=== PATIENT | female | born 1940 | race Caucasian/White ===

== ENCOUNTER 2022-12-26 13:22 | Inpatient (IN) | payer MEDICARE ==
[~2022-12-26] VITALS: Ht 160 cm; Wt 58.2 kg
[2022-12-26 14:05] LABS: BASOPHILS 0.8 % (0-2); EOSINOPHILS 11.6 % (0-6); HEMATOCRIT 46.1 % (35.0-50.0); HEMOGLOBIN 15.1 g/dL (12.0-18.0); LYMPHOCYTES 15.5 % (24-44); MCH 31.4 (27-36); MCHC 32.8 g/dl (30-36); MCV 95.5 fl (81-99); MONOCYTES 12.6 % (0-12); NEUTROPHILS 59.5 % (39-80); PLATELET COUNT 194 K/uL (140-440); RBC 4.82 M/ul (4.3-5.7); RDW 14.2 (10.5-15.0)
[2022-12-26] MEDS ORDERED: LASIX40 MG PO (14:05)
[2022-12-26 14:24] LABS: ALBUMIN 2.9 g/dL (3.4-5.0); ALBUMIN/GLOBULIN RATIO 0.64 (1.1-2.4); ANION GAP 11.2 (7-21); BILIRUBIN, TOTAL 1.4 ng/dL (0.2-1.0); BUN/CREATININE RATIO 27.64 (6.0-28.6); CALCIUM 9.3 mg/dL (8.5-10.1); CREATININE, SERUM 1.23 mg/dL (0.55-1.02); MAGNESIUM 2.2 mg/dL (1.8-2.4); POTASSIUM 4.2 mmol/L (3.5-5.1); PROTEIN, TOTAL 7.4 g/dL (6.4-8.2)
[2022-12-26 14:39] LABS: INFLUENZA B NAA NEGATIVE (NEGATIVE); RESPIRATORY SYNCYTIAL VIR NAA NEGATIVE (NEGATIVE)
[2022-12-26 17:17] VITALS: BP 127/44
--- NOTE | 2022-12-26 18:15 | NUR ---
pt is currently in bed sitting up eating dinner. she is requesting that there be no life saving measures be done for her. admission is done and no other cares are needed at this time. call light is within reach
--- NOTE | 2022-12-26 19:40 | NUR ---
REPORT RECEIVED FROM DAY SHIFT RN. PT RESTING IN BED. PT'S FAMILY AT BEDSIDE. SAFETY PRECAUTIONS MAINTAINED. CALL LIGHT WITHIN REACH. WILL CONTINUE TO MONITOR.
[2022-12-26 20:30] VITALS: BP 113/63
--- NOTE | 2022-12-26 20:30 | NUR ---
PT ASSESSED. VSS. PT CONTINUES TO WEAR O2 AT 3L NC, SATING 92%. PT UP SBA TO BSC. PT'S FAMILY AT BEDSIDE. SAFETY PRECAUTIONS MAINTAINED. CALL LIGHT WITHIN REACH. WILL CONTINUE TO MONITOR.
[2022-12-27 01:59] VITALS: BP 121/68
--- NOTE | 2022-12-27 02:00 | NUR ---
PT RESTING IN BED. VSS. PT CONTINUES TO BE A SBA TO THE BSC. SAFETY PRECAUTIONS MAINTAINED. CALL LIGHT WITHIN REACH. WILL CONTINUE TO MONITOR.
[2022-12-27 05:50] LABS: BASOPHILS 0.8 % (0-2); EOSINOPHILS 17.5 % (0-6); HEMATOCRIT 44.6 % (35.0-50.0); HEMOGLOBIN 14.8 g/dL (12.0-18.0); LYMPHOCYTES 16.2 % (24-44); MCH 31.5 (27-36); MCHC 33.1 g/dl (30-36); MCV 95.1 fl (81-99); MONOCYTES 12.1 % (0-12); NEUTROPHILS 53.4 % (39-80); PLATELET COUNT 174 K/uL (140-440); RBC 4.69 M/ul (4.3-5.7)
[2022-12-27 05:54] LABS: ANION GAP 11.9 (7-21); CALCIUM 8.8 mg/dL (8.5-10.1); CREATININE, SERUM 1.25 mg/dL (0.55-1.02); POTASSIUM 3.9 mmol/L (3.5-5.1)
[2022-12-27 06:03] VITALS: BP 134/76
--- NOTE | 2022-12-27 06:09 | NUR ---
PT RESTED WELL THROUGHUT THE SHIFT. PT ON O2 AT 4L NC TO KEEP O2 AT 92%. VSS. PT UP X1 TO BSC. PUREWICK IN PLACE. GOOD OUTPUT NOTED. SAFETY PRECAUTIONS MAINTAINED. CALL LIGHT WITHIN REACH. WILL CONTINUE TO MONITOR.
--- NOTE | 2022-12-27 07:31 | NUR ---
recieved shift report from nurse. pt is currently sleeping. no other cares needed at this time. call light within reach
[2022-12-27] MEDS ORDERED: ARMOUR THYROID30 MG PO (08:10)
[2022-12-27] MEDS ORDERED: FUROSEMIDE20 MG PO (08:11)
[2022-12-27] MEDS ORDERED: LEVOTHYROXINE50 MCG PO (08:12)
[2022-12-27] MEDS ORDERED: KLOR-CON M1010 MEQ PO (08:12)
[2022-12-27 09:12] VITALS: BP 127/43
[2022-12-27] MEDS ORDERED: MAGNESIUM400 M1 PO (09:13)
[2022-12-27] MEDS ORDERED: CALCIUM500 MG PO (09:13)
[2022-12-27] MEDS ORDERED: ZINC50 MG PO (09:13)
[2022-12-27] MEDS ORDERED: VITAMIN D325 MCG PO (09:14)
--- NOTE | 2022-12-27 09:18 | NUR ---
MED REC COMPLETE
--- NOTE | 2022-12-27 09:51 | NUR ---
PT IS CURRENTLY IN ROOM SITTING UP IN CHAIR TALKING WITH GRANDSON. WHEN ASKED IF SHES IN PAIN PT STATES NO. WHEN ASKED IF THERE IS ANYTHING I CAN DO PT STATES SHE IS FINE FOR NOW. NO THER CARES NEEDED . CALL LIGHT WITHIN REACH
--- NOTE | 2022-12-27 10:32 | NUR ---
PATIENT SITTING UP IN ROOM VISITING WITH GRANDSON. STATES SHE IS STAYING WITH SON AT THIS TIME. IS FROM [place], LIVES ALONE AND HAS [address] STEPS INTO HER HOME SHE DOES NOT HAVE ISSUES NAVIGATING. STATES SHE NO LONGER DRIVES BUT A FRIEND ASSISTS WITH TRANSPORTATION. HAS WALKER, TOILET RISER, SHOWER CHAIR AT HOME. STATES SHE IS PLANNING ON STAYING WITH SON FOR A WEEK AFTER DC TO HAVE HELP THEN RETURN HOME TO CONTINUE TO TRY TO SELL HER HOUSE. DENIES WANT FOR HOME HEALTH IN SPITE OF PT RECOMMENDATION. STATES SHE DOES NOT NORMALLY USE OXYGEN. PATIENT ENCOURAGED TO RECONSIDER HOME HEALTH PT TO HELP PREVENT INJURY. INFORMED STAFF WILL SPEAK WITH HER AGAIN PRIOR TO DC FROM FACILITY.
--- NOTE | 2022-12-27 11:07 | NUR ---
pt requested ice water. states that her leg was stiff but went away. offered her a pillow to put under her leg but she refused. no other cares are needed at this time. call light within reach
--- NOTE | 2022-12-27 12:00 | NUR ---
pt and grandson requested pt get showered after lunch. pt also requested menu to order food instead of recieving planned meals. no other cares are needed at this time. call light within reach
--- NOTE | 2022-12-27 12:43 | NUR ---
pt complained of pain and recieved prn morphine. also recieved his g tube feeding. no difficulties. no other cares needed or requested at this time. call light within reach.
[2022-12-27 14:08] VITALS: BP 114/50
[2022-12-27 18:47] VITALS: BP 132/47
--- NOTE | 2022-12-27 19:27 | NUR ---
REPORT RECIEVED FROM DAY SHIFT RN. PT SITTING IN CHAIR WITH FAMLY AT BEDSIDE. SAFETY PRECAUTIONS MAINTAINED. CALL LIGNT WITHIN REACH. WILL CONTINUE TO MONITOR.
[2022-12-27 20:24] VITALS: BP 114/65
--- NOTE | 2022-12-27 20:30 | NUR ---
PT ASSESSED. VSS. PT CONTINUES TO WEAR O2 AT 2L NC. PT'S FAMILY AT BEDSIDE. PT SBA TO BATHROOM. PT AND FAMILY EXPRESSED NO COMPLAINTS OR CONCERNS. SAFETY PRECAUTIONS MAINTAINED. CALL LIGHT WITHIN REACH. WILL CONTINUE TO MONITOR.
[2022-12-28 05:41] VITALS: BP 94/53
[2022-12-28 05:51] LABS: BASOPHILS 0.7 % (0-2); EOSINOPHILS 17.9 % (0-6); HEMATOCRIT 45.5 % (35.0-50.0); HEMOGLOBIN 15.3 g/dL (12.0-18.0); LYMPHOCYTES 18.8 % (24-44); MCH 31.5 (27-36); MCHC 33.6 g/dl (30-36); MCV 93.7 fl (81-99); MONOCYTES 11.7 % (0-12); NEUTROPHILS 50.9 % (39-80); PLATELET COUNT 180 K/uL (140-440); RBC 4.86 M/ul (4.3-5.7); RDW 14.1 (10.5-15.0)
--- NOTE | 2022-12-28 05:52 | EKG ---
[facility] [address] [place], [place] [address] Signed Wide QRS rhythm Right bundle branch block Left posterior fascicular block Bifascicular block Abnormal ECG No previous ECGs available Confirmed by CLARK LAMA MD ([id number]) on 12/28/2022 5:52:17 AM Electronically Signed By: CLARK LAMA 12/28/22 0552 PATIENT NAME: JERED KNOWLES Electrocardiogram DATE OF : 38 PHYSICIAN: CLARK LAMA REPORT #: [id number] REPORT IS CONFIDENTIAL AND NOT TO BE RELEASED WITHOUT AUTHORIZATION
[2022-12-28 05:57] LABS: ANION GAP 10.7 (7-21); BUN/CREATININE RATIO 30.5 (6.0-28.6); CALCIUM 9.1 mg/dL (8.5-10.1); CREATININE, SERUM 1.18 mg/dL (0.55-1.02); POTASSIUM 3.7 mmol/L (3.5-5.1)
--- NOTE | 2022-12-28 06:06 | NUR ---
PT RESTED WELL DURING THE SHIFT. PT WEANED TO 1L NC OF O2. PT SATING WELL. VSS. PT SBA TO THE BATHROOM AND TO CHAIR. PT ASSISTED TO CHAIR THIS AM. PUREWICK CHANGED. SAFETY PRECAUTIONS MAINTAINED. CALL LIGHT WITHIN REACH. WILL CONTINUE TO MONITOR.
--- NOTE | 2022-12-28 09:15 | NUR ---
RN IN ROOM TO ADMINISTER AM MEDICATIONS. ASSESSMENT COMPLETE. PT SITTING UP IN CHAIR. FAILED TO MAINTAIN SP02 ON ROOM AIR, PLACED BACK ON 2L NC. LUNGS CLEAR. GENERALIZED EDEMA BLE, LEFT WORSE THAN RIGHT.
--- NOTE | 2022-12-28 09:20 | NUR ---
Spoke with pt. Monika in the room. She states she came to stay with her son as she was not feeling well. She lives in [place]. Her home is up for sale. Whn it sells, she will move to her sons home permanently. She denies needs. If 02 is needed on dc, she would like to use [facility]. She denies other needs at this time. She is wanting to get home and sell her house.
[2022-12-28 09:42] VITALS: BP 148/56
--- NOTE | 2022-12-28 10:30 | NUR ---
PT VISITING WITH FAMILY IN ROOM. DENIES NEEDS AT THIS TIME.
--- NOTE | 2022-12-28 11:07 | NUR ---
PT ASSISTED BACK TO BED USING FWW. CALL LIGHT IN REACH, PURWIK IN PLACE.
--- NOTE | 2022-12-28 12:16 | NUR ---
PT UP WALKING IN HALLWAY WITH PHYSICAL THERAPY.
--- NOTE | 2022-12-28 14:44 | NUR ---
PT RESTING IN BED, DEFERING ASSESSMENT AT THIS TIME TO ALLOW REST. CALL LIGHT IN REACH.
--- NOTE | 2022-12-28 16:00 | NUR ---
RN IN ROOM TO ASSESS PT - LUNGS SOUNDS MORE MOIST, REMAINS ON 2L NC TO MAINTAIN SP02. PT DENIES PAIN OR NEEDS. STATES SHE HAD "A GOOD REST".
--- NOTE | 2022-12-28 17:33 | NUR ---
PT UP TO CHAIR TO EAT DINNER PER REQUEST. STANDBY ASSIST WITH FWW.
[2022-12-28 18:26] VITALS: BP 134/44
--- NOTE | 2022-12-28 19:15 | NUR ---
BEDSIDE REPORT RECEIVED FROM ALFREDO MACHUCA, PT AWAKE AND ALERT, UP IN RECLINER VISITING WITH SON AND DAUGHTER IN LAW, PT REQUESTS ICE WATER GIVEN, NO OTHER REQUESTS AT THIS TIME.
--- NOTE | 2022-12-28 19:23 | NUR ---
1400 VITALS WERE NOT DONE BECAUSE NURSE WANTED PATIENT TO SLEEP.
[2022-12-28 21:30] VITALS: BP 115/54
--- NOTE | 2022-12-28 21:30 | NUR ---
PT BACK TO BED, RESTING, AWAKENS EASILY, VS DONE, AFEBRILE, OXYGEN SATS 92% ON 2L/NC, ASSESSMENT COMPLETED, SL FLUSHES WELL IN RIGHT AC, SITE INTACT, ANTI EMBOLIC STOCKINGS IN PLACE, PURE WICK IN PLACE AND TO WALL SX DRAINING ROBERTO URINE. PT WITHOUT COMPLAINTS OR OTHER REQUESTS, RESTING WITH SIDE RAILS UP X 3, CALL LIGHT IN REACH, BED LOW POSITION.
--- NOTE | 2022-12-28 23:30 | NUR ---
PT RESTING QUIETLY WITH EYES CLOSED, RESP EVEN AND REG, WITHOUT DISTRESS.
--- NOTE | 2022-12-29 01:30 | NUR ---
PT APPEARS TO SLEEP, OXYGEN REMAINS ON AT 2L/NC, CPOX 96%.
--- NOTE | 2022-12-29 02:49 | NUR ---
PT AWAKE, TURNED SELF TO LEFT SIDE, OXYGEN IN PLACE, DENIES COMPLAINTS AT THIS TIME.
--- NOTE | 2022-12-29 03:30 | NUR ---
PT APPEARS TO SLEEP, RESP EVEN AND REG.
[2022-12-29 05:03] LABS: BASOPHILS 0.4 % (0-2); EOSINOPHILS 16.2 % (0-6); HEMATOCRIT 44.6 % (35.0-50.0); HEMOGLOBIN 14.8 g/dL (12.0-18.0); LYMPHOCYTES 17.9 % (24-44); MCH 31.2 (27-36); MCHC 33.2 g/dl (30-36); MCV 93.7 fl (81-99); MONOCYTES 12.8 % (0-12); NEUTROPHILS 52.7 % (39-80); PLATELET COUNT 176 K/uL (140-440); RBC 4.76 M/ul (4.3-5.7); RDW 13.8 (10.5-15.0)
[2022-12-29 05:12] LABS: ANION GAP 7.4 (7-21); BUN/CREATININE RATIO 26.78 (6.0-28.6); CALCIUM 8.5 mg/dL (8.5-10.1); CREATININE, SERUM 1.12 mg/dL (0.55-1.02); MAGNESIUM 1.9 mg/dL (1.8-2.4); POTASSIUM 3.4 mmol/L (3.5-5.1)
[2022-12-29 05:15] VITALS: BP 97/74
--- NOTE | 2022-12-29 05:15 | NUR ---
PT AWAKE, VS AND ASSESSMENT COMPLETED, PT UP TO STANDING SCALE, WT 130.5 POUNDS, PT DENIES REQUESTS AT THIS TIME.
--- NOTE | 2022-12-29 05:30 | NUR ---
PURE WICK CHANGED WHILE PT STANDING AFTER STANDING WT DONE, PT TOLERATED STANDING WITHOUT DIZZINESS, BACK TO BED, PURE WICK TO SX.
--- NOTE | 2022-12-29 07:47 | NUR ---
KAYLEEN RECEIVED FROM BRIGETTE HENRIQUEZ. PT RESTING IN BED, WORKING ON PHONE. PT DENIES PAIN AND NAUSEA. OXGYEN SATURATION OF 95% ON 2L O2 BY NC. PT DENIES REQUESTS OR COMPLAINTS AT THIS TIME. CALL LIGHT WITHIN REACH. BED RAILS UP.
--- NOTE | 2022-12-29 09:45 | NUR ---
ASSESSED PERIPHERAL IV IN L AC. IV LEAKED WHEN FLUSHED. WILL DC AND ASSESS FOR NEW IV SITES WHEN PT FINISHES PHYSICAL THERAPY. CALL LIGHT WITHIN REACH. BED RAILS UP.
--- NOTE | 2022-12-29 09:53 | NUR ---
MORNING ASSESSMENT AND MEDICATION DUE. PT RESTINGIN BED, FINISHED WITH BREAKFAST. PTS DAUGHTER IN LAW AT BEDSIDE WITH MANY QUESTIONS. LONG DISCUSSION HELD REGARDING HEART FAILURE PATHOPHYSIOLOGY AND TREATEMENTS. PT AND PTS DAUGHTER VERBALIE UNDERSTANDING AND PARTICIPATE IN DISCUSSION. BOTH STATE THEY ARE GREATFUL FOR THE EXPLINATIONS. PT DENIES PAIN AND NAUSEA. PT REPORTS OCCATIONAL DIZZINESS. SLOW TRANSITIONS HELP. PT UP TO CHAIR WITH ONE PERSON ASSIST AND FWW. OXYGEN SATURATIONS DROP TO 80% WITH ACTIVITY WHILE ON 1L O2 BY NC. OXYGEN INCREASED TO 2L O2 BY NC WITH OXGYEN SATURATIONS RISING TO 90%. LUNG SOUND CLEAR IN UPPER LOBED, CRACKELS HEARD IN LOWER LOBES. EDUCATION DONE WITH PT. HEART TONES REGULAR HEART RATE 90'S AT REST AND 100-120 WITH ACTIVITY. PURE WICK REMAINS IN PLACE, CONCENTRATED URINE SEEN IN CANISTER. NO ADDITONAL NEEDS AT THIS TIME. CALL LIGHT WITHIN REACH FAMILY AT BEDSIDE.
[2022-12-29 10:36] VITALS: BP 104/61; BP 89/67
--- NOTE | 2022-12-29 10:45 | NUR ---
THIS RN TO ROOM TO CHECK ON PT. PT UP TO CHAIR, VISITING WITH HER DAUGHTER IN LAW. EXTENSIVE HEART FAILURE EDUCATION DONE WITH PT AND DAUGHTER IN LAW REGARDING HEART FAILURE. PT ATTEMPTS TO USE GREEN/YELLOW/RED ZONES, NEEDS ADDITINOAL REINFORCEMENT. PT AND DAUGHTER IN LAW STATE PT IS IN THE YELLOW ZONE TODAY. PT ASSITED WITH FILLING OUT RECORD SHEET OF HER ZONE AND DAILY WEIGHT. PT AND DAUGTHER IN LAW STATE THEIR QUESTIONS HAVE BEEN ANSWERED. NEW IV STARTED PER PROTOCOL TO LEFT FORARM PT REPORTS DISCOMFORT TO RIGHT AC SITE AND SITE IS LEAKING. PT REMAINS ON 2 LITERS O2 BY NC TO MAINTAIN OXYGEN SATURATIONS ABOVE 90%. NO ADDITIONAL REQUESTS OR COMPLAINTS. CALL LIGHT FRANCISCAInVisionMAVIS PAT.
--- NOTE | 2022-12-29 11:35 | NUR ---
THIS RN TO ROOM TO CHECK ON PT. PT REPORTS SHE HAS VOIDED BUT NO ADDITIONAL URINE SEEN IN [facility]. PT UP TO STAND. DEPEDNS CHANGED, LUIS CARE DONE. REDNESS NOTED TO GLUTEAL AREA. BARRIER CREAM APPLIED. NEW PURE WICK PLACED PER PROTOCOL. PT TOELARTES GETTING UP TO STAND WITH 1 PERSON ASSIST. NO ADDITONAL REQUESTS OR COMPLAINTS. PT DENEIS PAIN AND NAUSEA. CALL LIGHT WIHTIN REACH. FAMILY AT BEDSIDE.
--- NOTE | 2022-12-29 12:41 | NUR ---
HOURLY ROUNDING. PT IN CHAIR AWAKE AND ALERT, TALKING TO DAUGHTER ON THE PHONE. LUNCH IS ON TRAY AT CHAIRSIDE, PT STATES SHE IS WAITING TO EAT AFTER HER PHONE CALL. PT REPORTS NO PAIN. NO NEEDS STATED AT THIS TIME. CALL LIGHT WITHIN REACH.
[2022-12-29 12:59] LABS: PH, VENOUS 7.474 (7.31-7.41)
--- NOTE | 2022-12-29 13:12 | NUR ---
PULSE OX ALARMING, PT UP TO CHAIR FINISHING LUNCH. OXYGEN SATURATIONS OF 85% ON 2L O2 BY NC. GOOD WAVE FORM SEEN. I.S. USE WITH PT REACHING 500-750ML X5. NO EFFECT ON OXYGENATION. OXYGEN INCREASED TO 3l O2 BY NC AND SATURATIONS CLIMB TO 92%. PT DENIES DIZZINESS OR LIGHTHEADEDNESS. PT DENIES PAIN OR NAUSEA. WORK OF BREATHING WNL. NO ADDITIONAL REQUESTS OR COMPLAINTS. CALL LIGHT PATSY PAT.
[2022-12-29 13:34] VITALS: BP 133/47
--- NOTE | 2022-12-29 14:32 | NUR ---
AFTERNOON ASSESSMENT AND MEDICAITON DUE. PT RESTING WITH EYES CLOSED. RESPIRATIONS EVEN AND UNLABORED. PT AWAKENS TO MOVEMENT IN THE ROOM. PT ALERT AND ORIENTED TO ALL. LUNG SOUNDS IMPROVING, CRACKELS CONTINUE IN RLL, NOW MINIMAL. CLEAR LLL AT THIS TIME. WORK OF BREATHING WNL. PT REPORTS SHE IS "FEELING BETTER." PT WEANED BACK TO 2L O2 BY NC WITH OXGYEN SATUARTIONS 90% AND ABOVE. PT DEMONSTRATES US OF I.S. REACHING 750ML X5. EDEMA TO BLE IMPROVING, NOW +1 IN BLE AND +2 IN FEET AND ANKLES. PURE WICK REMAINS IN PLACE. CONCENTRATED YELLOW URINE CONTINUES. IV LASIX GIVEN. PT ASSISTED WITH BOOSTING UP IN BED. HEAD OF BED REMAINS ELEVATED TO 30 DEGREES AND PT RETURNS TO RESTING. NO ADDITIONAL REQUESTS OR COMPLAINTS. CALL LIGHT WITHIN REACH. BED RAILS UP.
--- NOTE | 2022-12-29 14:43 | NUR ---
CARDIAC ASSESSMENT. PT STATES PAIN IN FRONT OF CALVES, NO PAIN ON THE BACK, NO SIGNS OF BLOOD CLOTS ON BACK OF CALVES. +2 EDEMA IN FEET AND ANKLES, +1 IN LOWER LEGS. HEART SOUNDS IRREGULARLY IRREGULAR. PT HAS A HX OF AFIB. HR 89, O2 SAT 93% PER CPOX. CARDIAC MEDICATIONS GIVEN PER ORDER.
--- NOTE | 2022-12-29 15:07 | NUR ---
HOURLY ROUNDING. PT LAYING IN BED WITH EYES CLOSED, RR 16, HR 87, O2 SAT 93%. PT ON 2L O2 VIA NC. CALL LIGHT WITHIN REACH. BED RAILS UP.
--- NOTE | 2022-12-29 16:11 | NUR ---
HOURLY ROUNDING. PT LAYING IN BED WITH EYES CLOSED, RR 16, HR 87, O2 SAT 92% PER CPOX. CALL LIGHT WITHIN REACH, BED RAILS UP.
--- NOTE | 2022-12-29 16:47 | NUR ---
PT HERE FOR CHF EXCECERBATION. PT UP WITH 1 PERSON ASSIST AND FWW TO CHAIR AND TO AMBUALTE IN ROOM THIS SHIFT. PHYSICAL THERAPY INVOLVED. PT TOLERATING 2 GM SODIUM DIET WITH GOOD APPITITE. DAILY WEIGHT TAKEN. PO AND IV LASIX GIVEN WITH GOOD RESULTS. PURE WICK IN PLACE. BLE EDEMA IMPROVING. LUNG SOUNDS CIMPROVING. PT REMAINS ON CPOX. 1-3L O2 BY NC GIVEN, 3 WITH ACTIVITY. RAJANI HOSE IN PLACE. EXTENSIVE EDUCATION DONE WITH PT AND FAMILY REGARDING HEART FAILURE. ECHOCARDIOGRAM EXPECTED ON SATURDAY. MONITORING LABS. PT ALERT AND OREINTED TO ALL THIS SHIFT. PT DENIES PAIN THROUGHOUT SHIFT. PT TOLEARTING PO MEDICATIONS. PT DOES NOT USE CALL LIGHT. INTENTIONAL HOURLY ROUNDING PERFORMED.
[2022-12-29 17:56] VITALS: BP 124/59
--- NOTE | 2022-12-29 18:06 | NUR ---
HOURLY ROUNDING. PT AWAKE AND ALERT IN BED. PT REPORTS NO PAIN, NO SOB. O2 VIA NC AT 2L, O2 SAT HIGH 80S. PT COMPLAINS OF DISCOMFORT WITH NC ON EARS AND BACK OF THE HEAD, SWITCHED TO OXY MASK AT 2L NC FOR RESTING IN BED. DISCUSSED WITH PT THAT USING NC DURING DAYTIME ACTIVITIES CAN ALLOW FOR GREATER MOBILITY. O2 SAT 91% ON OXY MASK, HR IN THE LOW 90S PER CPOX. PT REPORTS NO FURTHER NEEDS AT THIS TIME, CALL LIGHT WITHIN REACH, BED RAILS UP.
--- NOTE | 2022-12-29 19:15 | NUR ---
BEDSIDE REPORT RECEIVED BY SHAMEKA MACHUCA, PT RESTING QUIETLY WITH EYES CLOSED.
--- NOTE | 2022-12-29 19:19 | NUR ---
AFTER PATIENT WAS DONE WITH HER LUNCH AND GOT HER VITALS DONE. PATIENT WANTED TO LAY DOWN AND TAKE A NAP.
[2022-12-29 21:25] VITALS: BP 97/54
--- NOTE | 2022-12-29 21:25 | NUR ---
PT RESTING ON LEFT SIDE, OXYGEN MASK IN PLACE, PT AWAKENS EASILY, VS AND ASSESSMENT DONE, PT DENIES PAIN OR NEEDS AT THIS TIME, LEFT FA SL FLUSHES WELL, SITE INTACT.
--- NOTE | 2022-12-29 22:25 | NUR ---
PT APPEARS TO SLEEP, RESP EVEN AND REG. WITHOUT DISTRESS.
--- NOTE | 2022-12-30 00:30 | NUR ---
PT APPEARS TO SLEEP, RESP EVN AND REG, OXYGEN PER MASK REMAINS IN PLACE.
--- NOTE | 2022-12-30 01:50 | NUR ---
RM TO PT'S ROOM DUE TO CPOX ALARM, OXYGEN SATS 81-84%, OXYGEN FOUND TO BE OFF OF PT, PT AWAKEN AND OXYGEN REPLACE, PT C/O BEING WELL, LARGE INCONTINANCE, CHUK, ATTENDS AND PURE WICK CHANGED AFTER LUIS AND BUTTOCK AREA CLEANSED, PT REQUESTING HOB TO BE ELEVATED, FRESH WATER GIVEN AND PT DRINKING SOME, PT ATTEMPTING TO REST WITHOUT FURTHER REQUESTS.
--- NOTE | 2022-12-30 04:00 | NUR ---
CPOX ALARMING, READING 86-88%, FACE MASK ADJUSTED, SATS RISING BACK TO THE 90'S. PT WITHOUT REQUEST, FRESH WATER GIVEN.
[2022-12-30 04:55] VITALS: BP 106/55
--- NOTE | 2022-12-30 04:55 | NUR ---
LAB IN FOR AM BLOOD DRAW, VS AND ASSESSMENT COMPLETED, PT UP FOR STANDING WT, PT DESIRES TO SIT IN CHAIR, ATTENDS CHANGED WHILE STANDING FOR LARGE MISSED VOID, TRANSFERED TO CHAIR 1PA WITH WALKER, OXYGEN IN PLACE, CALL LIGHT IN REACH.
[2022-12-30 05:16] LABS: BASOPHILS 0.3 % (0-2); EOSINOPHILS 15.5 % (0-6); HEMATOCRIT 46.2 % (35.0-50.0); LYMPHOCYTES 21.8 % (24-44); MCH 30.8 (27-36); MCHC 32.5 g/dl (30-36); MCV 94.7 fl (81-99); MONOCYTES 14.3 % (0-12); NEUTROPHILS 48.1 % (39-80); PLATELET COUNT 193 K/uL (140-440); RBC 4.87 M/ul (4.3-5.7); RDW 14.1 (10.5-15.0)
[2022-12-30 05:24] LABS: ANION GAP 9.8 (7-21); BUN/CREATININE RATIO 35.08 (6.0-28.6); CALCIUM 9.2 mg/dL (8.5-10.1); CREATININE, SERUM 1.14 mg/dL (0.55-1.02); POTASSIUM 3.8 mmol/L (3.5-5.1)
--- NOTE | 2022-12-30 06:35 | NUR ---
PT AWAKE, DESIRES TO GET BACK IN BED, RN ASSISTED PT BACK TO BED, PT RESTING WITHOUT COMPLAINTS, OXYGEN IN PLACE.
--- NOTE | 2022-12-30 07:20 | NUR ---
REPORT RECEIVED FROM BRIGETTE HENRIQUEZ. PT RESTING IN BED, SEMIFOWLER, WITH HEAD OF BED AT 30 DEGREES WITH EYES CLOSED, RESPIRATIONS EVEN AND UNLABORED. OXYGEN SATURATIONS 95% ON 2L O2 BY N OXYMASK. PT ALLOWED TO REST. CALL LIGHT WIHTIN REACH. BED RAILS UP. BED ALARM ON.
[2022-12-30 08:35] VITALS: BP 121/58
--- NOTE | 2022-12-30 08:40 | NUR ---
MORNING ASSESSMENT AND MEDICAITON DUE. PT RESTING WITH EYES CLOSED. PT AWAKENES TO VOICE AND MOVEMENT IN THE ROOM. PT REPORT SHE SLEPT ON AND OFF LAST NIGHT. PT TOELRATING 2L O2 BY OXY MASK. ROOM AIR TRIAL ATTEMPTED AND PT DROPS TO 84%. PT REMAINS ALERT AND OREINTED TO ALL ALTHOUGH OCCATIONALLY FORGETFUL. PT DENIES PAIN AND NAUSEA. PT UP TO CHAIR WITH STAND BY ASSIST AND FWW. PT REPORTS SHE IS AFRAID HER "KNEES ARE GOING TO BUCKLE." PHYSICAL THERAPY INVOLVED. LUNG SOUNDS CLEAR IN UPPER LOBES, CRACKELS HEARD IN BASES. PT CONTINUES TO NEED 2L O2 BY NC WITH OXGYEN SATURATIONS 88-91%. PT DEMONSRATES USE OF I.S. ONLY REACHING 500ML X5 TODAY. OCCATIONAL DRY COUGH HEARD. PURE WICK CHANGED PER PROTOCOL. HEART TONES REGULAR ALTHOUGH NOTED THAT PTS RATE WAS IN THE 50'S WITH REST AND NOW IN 100-120'S. PT DENIES CHEST PAIN OR PALPITATIONS. NO ADDITIONAL REQUESTS OR COMPLAINTS. CALL LIGHT WIHTIN REACH. PT REMAINS UP TO CHAIR. EATING BREAFKAST.
--- NOTE | 2022-12-30 08:50 | NUR ---
CARDIAC AND VASCULAR ASSESSMENTS COMPLETED. CPOX ON, HR 119, O2 SAT 89% ON 2L VIA NC. HEART TONES REGULAR, TACHYCARDIC WITH HR IN 110-120. BLOOD PRESSURE IS STABLE, PT DENIES PAIN IN CHEST, PT REPORTS "MAYBE A LITTLE" DIZZINES. PULSES STRONG IN RADIAL, FAINT IN THE PEDAL PUSES, EDEMA DECREASING. EDEMA IS NOW TRACE IN BLE AND +1 IN BILAT FEET. CAP REFILL BRISK IN ALL EXTREMETIES <3 SEC.
--- NOTE | 2022-12-30 09:22 | NUR ---
PT REMAIN UP TO CHAIR. FINISHED WITH BREAKFAST. HEART RATE NOW 80-100. PT CONTINEUS TOERATING 2L 2O BY ID WITH OXYGEN SATUARTIONS 90-92%. PT DENIES PAIN AND NAUSEA. NO ADDITIONAL REQUESTS OR COMPLAINTS. CALL LIGHT WITHIN REACH.
--- NOTE | 2022-12-30 10:50 | NUR ---
HOURLY ROUNDING. PT UP TO CHAIR LAYING BACK WITH EYES CLOSED, RR 16 EVEN AND UNLABORED, CPOX ON DISPLAYING HR 98, O2 SAT 94% ON 2L NC. WEANED TO 1L NC, PT MAINTAINING 93% O2 SAT PER CPOX. PHYSICAL THERAPY WAS IN BEFORE THIS NOTE AND STATED THAT PT DID WELL AND TOLERATED ACTIVITY WITH 3L O2 VIA NC. NO NEEDS NOTED AT THIS TIME. CALL LIGHT WITHIN REACH.
--- NOTE | 2022-12-30 11:42 | NUR ---
HOURLY ROUNDING. PT UP TO CHAIR LAYING BACK WITH EYES CLOSED, RR 16, HR 89, O2 SAT 92% ON 1L NC. PHYSICAL THERAPY REMOVED PUREWICK, PUREWICK REPLACED. CALL LIGHT WITHIN REACH.
--- NOTE | 2022-12-30 12:27 | NUR ---
HOURLY ROUNDING. PT UP TO CHAIR, HAD EYES CLOSED WHEN WE CAME IN, BUT WOKE UP FOR LUNCH. PT REPOSITIONED TO SIT UP HIGHER IN CHAIR. PT EATING LUNCH, SON AND DAUGHTER IN LAW IN TO VISIT. HR 107, O2 SAT 87% VIA NC PER CPOX. NO FURTHER REQUESTS AT THIS TIME. CALL LIGHT WITHIN REACH.
--- NOTE | 2022-12-30 13:15 | NUR ---
THIS RN TO ROOM WITH DR GALAVIZ FOR ROUNDS. PT AND FAMILY UPDATED ON PT STATUS AND PLAN OF CARE. PT AND FAMILY VERBALIZE UNDERSTANDING AND STATE THEIR QUESTIONS HAVE BEEN ANSWERED. DR GALAVIZ UPDATED ON PT STATUS AND ASSESMENT, NEW ORDERS PLACED. ADDITIONAL EDUCATION DONE WITH PT REGARING RED/YELLOW/GREEN ZONES OF HEART FAILURE AND DAILY WEIGHTS. PT ABLE TO DEMONSTRATE UNDERSTANDING TODAY STATING SHE IS IN THE YELLOW ZONE BECAUSE SHE IS STILL HAVING SWELLING AND WEIGHT GAIN. PT ASSISTED WITH RECORDING WEIGHT AND ZONE. ICE WATER REFILLED. PURE WICK EMPTIED. NO ADDITIONAL REQUESTS OR COMPLAINTS AT THIS TIME. CALL LIGHT WITHIN REACH. FAMILY AT BEDSIDE.
--- NOTE | 2022-12-30 14:19 | NUR ---
PT ASSISTED BACK TO BED FOR A NAP. PT STATES SHE HAS NOT HAD A BM SINCE SHE HAS BEEN HERE BUT DOES NOT WANT TO TAKE ANYTHING.
[2022-12-30 14:35] VITALS: BP 131/64
--- NOTE | 2022-12-30 14:38 | NUR ---
AFTERNOON ASSESSMENT AND MEDICATION DUE. PT RESTING IN BED. PT ASSISTED WITH BOOSTING UP IN BED, PT ABLE TO BOOST SELF WITH ANGLE OF BED LOWERED. HEAD OF BED NOW AT 31 DEGREES. PT ALERT AND OREINTED TO ALL. DENIES PAIN AND NAUSEA. PT REMAIN OCCATIONALLY FORGETFUL AND REPORTS SHE IS TIRED AND READY FOR HER NAP. HEART TONES REGULAR HEART RATE 90-110. PT CONTINUES TO TOLEARTE 2L O2 BY NC WITH OXGYEN SATURATIONS ABOVE 90%. LUNG SOUNDS CLEAR. ADDITONAL MEDICATION GIVEN (SEE MAR). ABDOMEN SOFT AND NON TEDNER. PT DENIES FEELINGS OF CONSTIPATION. CMS INTACT. EDEMA UNCHANGED. PURE WICK REMAINS IN PLACE WITH CONCENTRATED YELLOW URINE IN CANISTER. PT DENIES ADDITONAL REQUESTS OR COMPLAINTS. CALL LIGHT WITHIN REACH. BED RAILS UP.
--- NOTE | 2022-12-30 14:50 | NUR ---
VASCULAR ASSESSMENT: PT LYING IN BED, AWAKE AND ALERT. EDEMA STILL PRESENT IN BLE. PEDAL PULSES CONTINUE TO BE FAINT. RADIAL PULSES STRONG. CAP REFILL BRISK <3 SECONDS IN ALL EXTREMETIES. SENSATION PRESENT IN ALL EXTREMETIES. CARDIOVASCULAR ASSESSMENT: PT CONTINUES TO BE ON CPOX, HR 107, O2 SAT 91% PER CPOX. HEART TONES REGULAR, TACHYCARDIC. EDEMA PRESENT IN BLE. PT'S FAMILY NOT AT BEDSIDE, PT REPORTS SHE IS GOING TO TAKE A NAP, PT REPORTS NO PAIN, NO FURTHER NEEDS STATED. CALL LIGHT WITHIN REACH.
--- NOTE | 2022-12-30 15:24 | NUR ---
HOURLY ROUNDING. PT LAYING IN BED WITH EYES CLOSED, RR 16, HR 100, O2 SAT 95%. CALL LIGHT WITHIN REACH.
--- NOTE | 2022-12-30 16:34 | NUR ---
HOURLY ROUNDING. PT LAYING IN BED WITH EYES CLOSED, RR 13, HR 55 PER CPOX, O2 SAT 97% PER CPOX. WEANED DOWN TO 1L O2 VIA NC FROM 2L. O2 96% AFTER WEANING. PT HR DECREASES TO THE 50S WHEN SLEEPING AND O2 SAT INCREASES TO THE MID-HIGH 90S WHEN SLEEPING THIS SHIFT. CALL LIGHT WITHIN REACH, BED RAILS UP.
--- NOTE | 2022-12-30 16:40 | NUR ---
PT HERE FOR CHF EXCECERBATION. PT UP WITH 1 PERSON ASSIST AND FWW TO CHAIR AND TO AMBUALTE IN ROOM THIS SHIFT. PHYSICAL THERAPY INVOLVED. PT TOLERATING 2 GM SODIUM DIET WITH GOOD APPITITE. DAILY WEIGHT TAKEN. PO LASIX GIVEN WITH GOOD RESULTS. PURE WICK IN PLACE. BLE EDEMA IMPROVING. LUNG SOUNDS IMPROVING. PT REMAINS ON CPOX. 1-3L O2 BY NC GIVEN, 3 WITH ACTIVITY. RAJANI HOSE IN PLACE. EXTENSIVE EDUCATION DONE WITH PT AND FAMILY REGARDING HEART FAILURE. ECHOCARDIOGRAM EXPECTED ON SATURDAY. MONITORING LABS. PT ALERT AND OREINTED TO ALL THIS SHIFT. PT DENIES PAIN THROUGHOUT SHIFT. PT TOLEARTING PO MEDICATIONS. CASE MANAGEMENT ODER PLACED TO ASSIST WITH DISHCHARGE PLANNING. PT DOES NOT USE CALL LIGHT. INTENTIONAL HOURLY ROUNDING PERFORMED.
--- NOTE | 2022-12-30 16:43 | NUR ---
NOTED FROM DR TEAGUE PROGRESS NOTE THAT PT MAY NEED PLACMENT AND/OR PHYSCIAL THERAPY UPON DISCHARGE. CASE MANAGEMENT CONSULTATION ORDER PLACED.
[2022-12-30 17:32] VITALS: BP 99/49
--- NOTE | 2022-12-30 17:34 | NUR ---
HOURLY ROUNDING. PT SITTING UP IN BED, HAD JUST FINISHED EATING DINNER. PT STATES SHE HAS A "STUFFY" NOSE AND THAT HER NOSE IS "FEELING DRY". REMOVED NC, PT CLEARED NOSE, NOW FEELS LIKE IT IS CLEAR. ADDED HUMIDIFICATION TO O2 FOR DRYNESS. PT TOLERATING WELL AND O2 IS AT 91% ON 2L PER CPOX. PUREWICK IN PLACE. PT STATES NO FURTHER NEEDS AT THIS TIME. PT ASSISTED TO LAY DOWN IN BED. PT STATES NO FURTHER NEEDS AT THIS TIME. CALL LIGHT WITHIN REACH. BED RAILS UP.
--- NOTE | 2022-12-30 18:16 | NUR ---
PT LYING IN BED AWAKE AND ALERT. BED ALARM ON. HR 62, O2 SAT 93 PER CPOX. PT CONTINUES TO BE ON 2L O2 VIA NC WITH HUMIDIFICATION. PT COMPLAINS OF NC HURTING HER EARS, EAR PROTECTORS PLACED ON NC, PT STATES THEY "FEEL BETTER". PT STATES NO FURTHER NEEDS AT THIS TIME. CALL LIGHT WITHIN REACH, BED ALARM ON, BED RAILS UP.
--- NOTE | 2022-12-30 19:05 | NUR ---
BEDSIDE REPORT RECEIVED FROM SHAMEKA MACHUCA, PT AWAKE AND ALERT, DENIES COMPLAINTS AT THIS TIME.
[2022-12-30 21:05] VITALS: BP 139/47
--- NOTE | 2022-12-30 21:05 | NUR ---
PT AWAKE AND ALERT, VS DONE PER SHAMEKA RN, VS REVIEWED AND NOTED. FAMILY HERE FOR A VISIT.
--- NOTE | 2022-12-30 22:40 | NUR ---
PT RESTING ON LEFT SIDE, EASILY AROUSABLE, ASSESSMENT COMPLETED, LEFT FA SL FLUSHES WELL, OXYGEN NOTED TO BE ON 2.5L/NC, CPOX IN PLACE OXYGEN 93%, HR 61. PT WITHOUT COMPLAINTS OR REQUESTS AT THIS TIME, PURE WICK IN PLACE.
--- NOTE | 2022-12-30 23:58 | NUR ---
PT RESTING QUIETLY ON RIGHT SIDE, CPOX 93%, RESP REGULAR
--- NOTE | 2022-12-31 01:50 | NUR ---
PT ASLEEP, LAYING ON LEFT SIDE, SATS 97-98%
--- NOTE | 2022-12-31 04:12 | NUR ---
PT APPEARS TO SLEEP, RESP EVEN AND REG, CPOX 95%.
[2022-12-31 05:11] VITALS: BP 105/53
--- NOTE | 2022-12-31 05:11 | NUR ---
LAB IN FOR AM BLOOD DRAW, VS DONE, PT UP TO BE WEIGH ON STANDING SCALE, PERICARE DONE AND NEW PURE WICK PLACED. PT DESIRES TO SIT ON SIDE OF BED, HAIR COMBED AND ORAL CARE GIVEN, BED ALARM ON AND BEDSIDE TABLE PLACED IN FRONT OF PATIENT. OXYGEN IN PLACE.
[2022-12-31 05:13] LABS: BASOPHILS 0.7 % (0-2); EOSINOPHILS 18.5 % (0-6); HEMATOCRIT 43.8 % (35.0-50.0); HEMOGLOBIN 14.4 g/dL (12.0-18.0); LYMPHOCYTES 23.6 % (24-44); MCV 93.9 fl (81-99); MONOCYTES 14.5 % (0-12); NEUTROPHILS 42.7 % (39-80); PLATELET COUNT 171 K/uL (140-440); RBC 4.66 M/ul (4.3-5.7)
[2022-12-31 05:24] LABS: ANION GAP 7.8 (7-21); BUN/CREATININE RATIO 33.05 (6.0-28.6); CALCIUM 9.1 mg/dL (8.5-10.1); CREATININE, SERUM 1.18 mg/dL (0.55-1.02); MAGNESIUM 2.1 mg/dL (1.8-2.4); POTASSIUM 3.8 mmol/L (3.5-5.1)
--- NOTE | 2022-12-31 06:46 | NUR ---
PT BACK TO BED, WITHOUT COMPLAINTS, BREATH SOUNDS CLEAR, RESP EVEN AND REG, OXYGEN IN PLACE, RAJANI HOSE REMAIN ON.
--- NOTE | 2022-12-31 07:44 | NUR ---
REPORT RECEIVED FROM BRIGETTE HENRIQUEZ. PT IN BED RESTING WITH EYES CLOSED.
--- NOTE | 2022-12-31 08:40 | NUR ---
PT WAS RESTING BUT I WOKE HER TO GIVE HER HER MORNING MEDS AND GET HER UP IN HER CHAIR TO EAT BREAKFAST. I NOTICED THAT HER 02 WAS AT 85 THOUGH SHE WAS ON 2L. I TURNED IT UP TO 3L AND HER 02 STATS WENT UP TO 88. SHE REQUESTED FOR A ROBE AND IT WAS GIVEN. NO OTHER CARES ARE NEEDED OR REQUESTED AT THIS TIME. CALL LIGHT WITHIN REACH
--- NOTE | 2022-12-31 08:50 | NUR ---
Spoke with Lanette. She denies needs. Plans on staying through tomorrow for an Echo. We did discuss the could be a chance medicare won't pay for her to stay in house for an Echo. I did discuss with Dr. Kruse, he does state he cont. to diures this pt and she needs to stay tonight. PT had recommending SNF, pt is declining this.
[2022-12-31 09:38] VITALS: BP 140/56
--- NOTE | 2022-12-31 09:40 | NUR ---
PATIENT SITTING UP IN CHAIR AT THIS TIME. VITALS AND I&O'S CHARTED. CALL LIGHT IN REACH. NO FURTHER NEEDS AT THIS TIME.
--- NOTE | 2022-12-31 12:45 | NUR ---
Face sheet, 02 qualifier, Rx, H&P and notes faxed to [facility] for 02. Face sheet updated with son's correct address for pt 02 to be delivered to his home. I called Yifan and he gave the correct address as Lanette did not know. He states family will pick her up tomorrow and stay with her in his home.
[2022-12-31 13:55] VITALS: BP 92/46
--- NOTE | 2022-12-31 16:19 | NUR ---
PT IS CURRENTLY SITTING UP IN HER CHAIR. PHYSICAL THERAPY IS WITH HER NOW. NO OOTHER CARES WERE NEEDED OR REQUESTED AT THE TIME
--- NOTE | 2022-12-31 16:28 | NUR ---
ASSISTED PT WITH SHOWER. HAD A BM PRIOR TO SHOWERING. WAS ABLE TO WASH OWN HAIR AND RINSE. ASSISTED WITH DRESSING AND AMB BACK TO CHAIR.
--- NOTE | 2022-12-31 16:37 | NUR ---
ASSITED PT TO SHOWER. HAD A BOWEL MOVEMENT PRIOR TO SHOWERING. PT ABLE TO WASH OWN HAIR AND HELP WITH DRESSING. PT AMB BACK TO CHAIR WITH FWW.
[2022-12-31 18:26] VITALS: BP 146/50
--- NOTE | 2022-12-31 19:05 | NUR ---
REPORT RECEIVED FROM BERNA. pt UP IN CHAIR VISITING WITH FAMILY. DENIES ANY NEEDS. CALL LIGHT IN REACH.
[2022-12-31 19:50] VITALS: BP 141/57
--- NOTE | 2022-12-31 20:31 | NUR ---
pt AWAKE SITTING UP IN CHAIR. ASSESSMENT COMPLETE. 2.5L OXYGEN BY NC IN PLACE, SPO2 WNL. LUNG SOUNDS COARSE LLL. pt DENIES SOB. ASSISTED TO CALL DAUGHTER ON CELL PHONE. CALL LIGHT IN REACH. pt DENIES TOILETING OR ADDITIONAL NEEDS, DOES NOT WISH TO GO TO BED AT THIS TIME.
--- NOTE | 2023-01-01 00:59 | NUR ---
CHECKED ON pt. RESTING IN BED ON LEFT SIDE. SPO2 WNL, CPOX ON. NO DISTRESS NOTED.
--- NOTE | 2023-01-01 04:00 | NUR ---
CPOX ALARMING, OXYGEN ON FOREHEAD. REAPPLIED, TITRATED TO 4L OXYGEN BY NC TO MAINTAIN SATURATIONS >92% PER ORDER. pt COVERED WITH BLANKETS PER REQUEST. PUREWICK IN PLACE AND FUNCTIONING.
[2023-01-01 06:43] VITALS: BP 147/48
--- NOTE | 2023-01-01 06:59 | NUR ---
pt SLEEPING, AWAKENS TO VOICE. VSS. STANDING WEIGHT 58.2 KG. OXYGEN TITRATED TO 4L WITH ACTIVITY, SPO2 90% WHILE OUT OF BED. LINENS CHANGED, INCONTINENCE OF URINE. NEW PUREWICK PLACED. ICE WATER PROVIDED, pt SITS UP TO TAKE DRINKS. REQUESTING TO REST. CALL LIGHT IN REACH.
--- NOTE | 2023-01-01 07:21 | NUR ---
Report received from Bonita MCAHUCA. Patient resting in bed, respirations even and unlabored, no needs identified at this time. Call light in reach.
--- NOTE | 2023-01-01 08:28 | NUR ---
PATIENT IS HAVE ECHO DONE AT THIS TIME.
--- NOTE | 2023-01-01 09:08 | NUR ---
PATIENT INCREASED FROM 3L TO 4L DURING BREAKFAST TO KEEP SATS >88%. RT CLARK NOTIFIED AND INDICATED THAT SHE IS QUALIFIED FOR 4L WITH ACTIVITY. PRIMARY NURSE NOTIFIED.
--- NOTE | 2023-01-01 09:15 | NUR ---
Scheduled medications administered, assessment complete. Patient sitting up to bedside eating breakfast, states all finished, tray cleared. Patient on 3L O2, lung sounds diminished with rare crackles heard. Patient denies needs, denies SOB, no pain. Minimal edema to BLE.
[2023-01-01] MEDS ORDERED: FUROSEMIDE40 MG PO (09:54)
--- NOTE | 2023-01-01 10:00 | NUR ---
Pt was discussed in 8:30 meeting. She will dc to home when 02 delivered. CAlled Grazyna to check when 02 will be delivered. NOtified their is a multiple car [place]up on the freeway. Their tractor driver is rerouting through [place]. This will ad approx 2 hrs. He will text when he is closer so family can take pt home.
[2023-01-01 10:11] VITALS: BP 127/62
[2023-01-01 10:43] VITALS: BP 142/52
--- NOTE | 2023-01-01 11:05 | NUR ---
IV REMOVED, TIP INTACT, GAUZE AND COBAN DRESSING APPLIED TO SITE. PT TOLERATED WELL. PUREWICK REMOVED AND NEW BREIF DONNED. PT ASSISTED TO DRESS IN PERSONAL CLOTHES FOR DISCHARGE. PT ASSISTED TO RECLINER WITH 1 PERSON STANDBY ASSIST AND FWW, PT TOLERATED WELL. O2 IN PLACE VIA NC AT 4LPM. VS OBTAINED, STABLE. PRIMARY RN NOTIFIED, BRIGETTE HCÁVEZ.
--- NOTE | 2023-01-01 12:04 | NUR ---
Discharge teaching provided to patient and her family member. Patient states understanding. Elzbieta MACHUCA in room discussing home health PT/OT, pt is agreeable. Home o2 company associate arrives to discuss plan with patient and her family. Pt is dressed and all belonings gathered. Education and paperwork given. No further needs. Call light in reach.
--- NOTE | 2023-01-01 12:30 | NUR ---
Notified by Toan he is in [place] and will be at the hospital around 1pm. He is bringing a tank for the pt to dc to home with. Pts GABY is here with pt. She is wanting to know if we can help them change a pcp to [place]. I gave them a list of Dr. Let them know to not dc their Dr. until they have been accepted and schedule with a Dr. in [place]. Let them know, it can take 4-6 months to schedule with a pcp. GABY would like pt to have HH PT/OT/[facility]. We discussed pt had refused this. GABY feels this is needed as pt is deconditioned and requires 4l of [address] Goode and he is in agreement. Pt now agreeing. They would like [facility].
--- NOTE | 2023-01-01 16:00 | NUR ---
Face sheet, H&P, dc summary, F2F, therapy notes faxed to [facility]. I called Tasha their manager ccu, they are approx 2 weeks out to see pts. DIL was updated.
== END 2023-01-01 12:36 | disposition home or self-care (01) | DRG 291 ==
LOC: ED 13:22 → MS 13:25
PROVIDERS: Emergency Medicine; ADMIT Family Medicine; ATTEND Family Medicine
DX: I50.9 Heart failure, unspecified (principal); J96.01 Acute respiratory failure with hypoxia; E03.9 Hypothyroidism, unspecified; I25.10 Atherosclerotic heart disease of native coronary artery without angina pectoris; Z20.822 Contact with and (suspected) exposure to COVID-19; N18.32 Chronic kidney disease, stage 3b; I25.2 Old myocardial infarction; Z95.1 Presence of aortocoronary bypass graft; Z88.0 Allergy status to penicillin; Z98.890 Other specified postprocedural states; Z79.01 Long term (current) use of anticoagulants
CPT/HCPCS: 36415; 71045; 80048; 80053; 82803; 83735; 83880; 84443; 84484; 85025; 87502; 93005; 93010; 93306; 94640; 94761; 94762; 96374; 96376; 97110; 97116; 97161; 97530; 99285-25; A9270; C9803; G0378; J1940; U0002

== ENCOUNTER 2024-01-07 00:52 | Inpatient (IN) | payer MEDICARE ==
[2024-01-07] VITALS (13 sets, daily range): BP systolic 110–163; BP diastolic 40–70
[~2024-01-07] VITALS: Ht 160 cm; Wt 61.5 kg
[~2024-01-07 00:52] MED LIST: ARMOUR THYROID30 MG PO; CALCIUM500 MG PO; FUROSEMIDE20 MG PO; FUROSEMIDE40 MG PO; KLOR-CON M1010 MEQ PO; LASIX40 MG PO; LEVOTHYROXINE50 MCG PO; MAGNESIUM400 M1 PO; VITAMIN D325 MCG PO; ZINC50 MG PO
[2024-01-07 01:11] LABS: PH, VENOUS 7.391 (7.31-7.41)
[2024-01-07 01:13] LABS: BASOPHILS 1.3 % (0-2); EOSINOPHILS 1.8 % (0-6); HEMATOCRIT 43.6 % (35.0-50.0); HEMOGLOBIN 14.6 g/dL (12.0-18.0); LYMPHOCYTES 35.6 % (24-44); MCHC 33.5 g/dl (30-36); MCV 95.4 fl (81-99); MONOCYTES 11.8 % (0-12); NEUTROPHILS 49.5 % (39-80); PLATELET COUNT 134 K/uL (140-440); RBC 4.57 M/ul (4.3-5.7); RDW 15.1 (10.5-15.0)
[2024-01-07] MEDS ORDERED: FUROSEMIDE 100 MG/10 ML VIAL IV ONE (01:15)
[2024-01-07] MEDS ORDERED: LIDOCAINE 2% VISCOUS 6 ML SYR TOP ONE (01:30)
[2024-01-07 01:37] LABS: BILIRUBIN, TOTAL 1.6 ng/dL (0.2-1.0); BUN/CREATININE RATIO 17.85 (6.0-28.6); CALCIUM 9.6 mg/dL (8.5-10.1); CREATININE, SERUM 1.96 mg/dL (0.55-1.02)
[2024-01-07] MEDS ORDERED: ondansetron HCL 4 MG/2 ML VIAL IV PRN (03:00)
[2024-01-07] MEDS ORDERED: ACETAMINOPHEN 325 MG TAB PO PRN ×2 (03:00→16:00)
--- NOTE | 2024-01-07 03:50 | NUR ---
PT TO FLOOR APPROX 0315 VIA STRETCHER WITH ED RN. SLIDE ASSIST TO TRANSFER TO BED. BEDSIDE REPORT RECEIVED. PT ALERT AND ORIENTED. VS OBTAINED. TELE #6 PLACED. PT DENIES CHEST PAIN OR SOB. OXYGEN 97% ON 2L/NC. O2 TITRATED TO 1L/NC. CPOX IN PLACE. SpO2 MID 90'S. HR IRREGULAR 60-80'S. LUNGS CLEAR THROUGHOUT. BLE EDEMA NOTED. WARM BLANKETS PROVIDED. PT ORIENTED TO ROOM AND NURSE CALL LIGHT. PT DENIES QUESTIONS OR CONCERNS. CALL LIGHT IN REACH. BED ALARM FOR SAFETY.
[2024-01-07 05:54] LABS: BASOPHILS 0.6 % (0-2); EOSINOPHILS 2.2 % (0-6); HEMATOCRIT 41.2 % (35.0-50.0); LYMPHOCYTES 36.1 % (24-44); MCH 31.8 (27-36); MCHC 33.9 g/dl (30-36); MONOCYTES 13.2 % (0-12); NEUTROPHILS 47.9 % (39-80); PLATELET COUNT 120 K/uL (140-440); RBC 4.38 M/ul (4.3-5.7); RDW 14.9 (10.5-15.0)
--- NOTE | 2024-01-07 06:03 | NUR ---
PT AWAKE IN BED. VS AND I&O OBTAINED. DAILY WEIGHT OBTAINED. PT REPORTS A "TINY BIT" OF SOB WITH ACTIVITY. 1L/NC IN PLACE. SpO2 MID TO HIGH 90'S. PUREWICK CHANGED AFTER LUIS CARE. WARM BLANKETS PROVIDED. BED ALARM FOR SAFETY. CALL LIGHT IN REACH.
[2024-01-07 06:17] LABS: ALBUMIN 3.7 g/dL (3.4-5.0); ANION GAP 10.3 (7-21); BILIRUBIN, TOTAL 1.5 ng/dL (0.2-1.0); BUN/CREATININE RATIO 18.99 (6.0-28.6); CALCIUM 9.1 mg/dL (8.5-10.1); CREATININE, SERUM 1.79 mg/dL (0.55-1.02); POTASSIUM 3.3 mmol/L (3.5-5.1); PROTEIN, TOTAL 7.4 g/dL (6.4-8.2)
--- NOTE | 2024-01-07 07:44 | NUR ---
PT RESTING EYES CLOSED AT TIME OF SHIFT REPORT, LEFT UNDISTURBED. AWAKE NOW AND UP TO THE CHAIR SBA WITH FWW. SATS DIP TO 89 WITH ACTIVITY RECOVERS QUICKLY AT 94% ON 1 L02 NC. FRESH H20 AND NEEDED ITEMS IN REACH CALL LIGHT IN LAP PT AGREES TO CALL FOR ANY NEEDED ASSIST. CHAIR IS RECLINED VISUAL TO RN STATION. 02 DC'D SATS REMAIN MID 90'S
[2024-01-07] MEDS ORDERED: POTASSIUM CHLORIDE 10 MEQ TABCR PO ONE ×2 (08:00→12:00)
--- NOTE | 2024-01-07 08:00 | NUR ---
PT SATS DIP TO 80'S 02 REPLACED AT 1LPM RECOVERS QUICKLY
--- NOTE | 2024-01-07 08:03 | NUR ---
PATIENT IN BED AT THIS TIME. QUALITY ASSURANCE ASSOCIATE WENT INTO ROOM FOR PATIENT ROUNDINGS. CALL LIGHT WITHIN REACH, NO FURTHER NEEDS AT THIS TIME.
[2024-01-07] MEDS ORDERED: FUROSEMIDE 40 MG/4 ML VIAL IV SCH (09:00)
--- NOTE | 2024-01-07 09:15 | NUR ---
PT SITTING IN CHAIR WITH MORNING MEAL AGREES SHE HAS EVERYTHING SHE NEEDS
--- NOTE | 2024-01-07 09:46 | NUR ---
ULTRA SOUND TECH IN WITH PT AT THIS TIME
--- NOTE | 2024-01-07 10:10 | NUR ---
LASIX WAS HELD PER DR SMALLS DUE TO LOW BP EARLIER IN SHIFT. RECHECKING BP NOW IT REMAINS LOW MED NOT GIVEN. PT CONTINUES IN BED FOR U/S TESTING CALL LIGHT IN REACH
--- NOTE | 2024-01-07 10:17 | NUR ---
ULTRASOUND BEING COMPLETED AT THIS TIME. WILL RETURN TO COMPLETE ASSESSMENT AT A LATER TIME.
--- NOTE | 2024-01-07 10:56 | NUR ---
VISITED DURING SPIRITUAL CARE ROUNDS. PT IN OVERALL GOOD SPIRITS, DENIED IMMEDIATE NEEDS. STORE COORDINATOR PROVIDED SUPPORTIVE PRESENCE, HOSPITALITY, PRAYER. PT EXPRESSED GRATITUDE.
--- NOTE | 2024-01-07 11:15 | NUR ---
CHF EDUCATION COMPLETED PRINTED MATERIALS AT BEDSIDE. PT IS COOPERATIVE AGREES TO READ MATERIALS AT SOME POINT. PT DENIES QUESTIONS.
--- NOTE | 2024-01-07 11:48 | NUR ---
PT WORKING WITH P/T
[2024-01-07] MEDS ORDERED: PHARMACY RENAL DOSE ADJUSTMENT 1 DOSE MISC PO SCH (12:00)
--- NOTE | 2024-01-07 12:22 | NUR ---
PATIENT IN BED AT THIS TIME. FREIGHT CHECKER WENT INTO PATIENTS ROOM FOR PATIENT ROUNDINGS. CALL LIGHT WITHIN REACH, NO FURTHER AT THIS TIME.
--- NOTE | 2024-01-07 12:26 | NUR ---
PT UP TO THE CHAIR AFTER WORKING WITH P/T. NOON MEAL IS SERVED PT AGREES SHE WILL EAT, TOILET, AND THEN LAY DOWN FOR SOME BADLY NEEDED REST. CALL LIGHT IN LAP DENIES OTHER NEEDS
--- NOTE | 2024-01-07 13:00 | NUR ---
PATIENT ALERT AND ORIENTED. SITTING UP IN RECLINER. STATES SHE IS MOVING IN WITH HER SON AT DISCHARGE UNTIL SHE IS ABLE TO GET INTO A FACILITY TO LIVE. CURRENTLY HAS AN APPLICATION FOR [employer] BUT IS 24TH ON THE WAITING LIST. DISCUSSED [facility] OPTIONS. STATES SHE IS OK WITH GOING TO HER SON'S UNTIL A PLACE OPENS UP. STATES HE HAS STAIRS TO THE DECK OF HIS HOUSE, BUT FAMILY ASSISTS HER WHEN NEEDED. DME INCLUDES WALKER, CANE, OXYGEN THROUGH [facility]. DOES NOT DRIVE, FAMILY ASSISTS WITH TRANSPORTATION. HAS NO PCP. ADDED TO DISCHARGE SCHEDULING LIST AND CLINICALS FAXED TO [facility] TO ASSIST WITH GETTING PATIENT A PCP. DENIES ANY FINANCIAL HARDSHIP AT THE MOMENT. STATES SHE CAN NOT CURRENTLY THINK OF ANY CM NEEDS. WILL RETURN TO SPEAK WITH PATIENT AND FOLLOW-UP TOMORROW.
--- NOTE | 2024-01-07 14:48 | NUR ---
PT TO THE TOILET AND THEN TO REST IN BED. SOB WITH ACTIVITY RECOVERS QUICKLY. REMAINS ON 02 1LPM.
[2024-01-07] MEDS ORDERED: POTASSIUM GLUCO99 MG PO (15:07)
[2024-01-07] MEDS ORDERED: CALCIUM500 MG PO (15:07)
--- NOTE | 2024-01-07 15:07 | NUR ---
MED REC COMPLETE
[2024-01-07] MEDS ORDERED: CYCLOBENZAPRINE HCL 10 MG TAB PO PRN (16:00)
--- NOTE | 2024-01-07 16:00 | NUR ---
PATIENT IN CHAIR AT THIS TIME. COOKER LOADER WENT INTO PATIENTS ROOM TO DO PATIENT ROUNDS. CALL LIGHT WITHIN REACH, NO FURTHER NEEDS AT THIS TIME.
--- NOTE | 2024-01-07 16:43 | NUR ---
CHECKED IN WITH PT EARLIER SHE REPORTS CONTINUED LEG CRAMPING. REPORTED TO DR SMALLS ORDERS GIVEN. ADMINISTERED FLEXARIL. CHECKING BACK NOW PT REPORTS SHE THINKS IT'S HELPING, SHE HAS NO CRAMPING AT THIS TIME. CONTINUES UP IN THE CHAIR FRESH H20 TO CHAIRSIDE CALL LIGHT IN LAP. PT AGREES TO CALL IF SHE NEEDS TO GET UP
[2024-01-07] MEDS ORDERED: FUROSEMIDE 40 MG/4 ML VIAL IV ONE (16:45)
--- NOTE | 2024-01-07 17:03 | NUR ---
VITALS TAKEN PRIOR TO ADMINISTRATION OS LASIC BP LOW AGAIN. REPORTED BP AND BRADYCARDIA TO DR SLIM SNIDER CANCELED PER HIS ORDER. NOT GIVEN
--- NOTE | 2024-01-07 17:53 | NUR ---
PT TO THE TOILET TO VOID THEN RETURNS TO THE CHAIR FOR EVENING MEAL. CONTINUES WITHOUT LEG CRAMPS.
--- NOTE | 2024-01-07 18:14 | NUR ---
PATIENT IN CHAIR AT THIS TIME. RN OBGYN WENT INTO PATIENT ROOM TO DO PATIENT ROUNDINDS. RN OBGYN CHARTED VITALS AND I&O'S. CALL LIGHT WITHIN REACH, NO FURTHER NEEDS AT THIS TIME.
--- NOTE | 2024-01-07 18:41 | NUR ---
PT EATS ENTIRE EVENING MEAL WELL TOLERATED. RETURNS TO REST IN BED PURWIK PLACED FOR PT COMFORT.
--- NOTE | 2024-01-07 18:50 | NUR ---
PT WANTED TO GO BACK TO BED. PUT A PUREWICK ON @1840 AND DID LUIS CARE ON PT. GOT HER A WARM BLANKET AND PUT SDC'S BACK ON. CALL LIGHT IS WITHIN REACH AND PT DIDNT NEED ANYTHING ELSE FROM ME.
--- NOTE | 2024-01-07 19:23 | NUR ---
REPORT RECEIVED FROM DAY SHIFT RN. PT LYING IN BED ALERT AND ORIENTED. DENIES NEEDS. WHITE BOARD UPDATED. CALL LIGHT IN REACH. BED ALARM FOR SAFETY.
[2024-01-07] MEDS ORDERED: TIZANIDINE HCL 4 MG TABLET PO PRN (21:45)
--- NOTE | 2024-01-07 21:47 | NUR ---
EVENING ASSESSMENT COMPLETE. PT REPORTS LEG CRAMPS AND RESTLESS LEGS. NO PRN'S AVAILABLE. MD NOTIFIED. NEW TELEPHONE ORDERS RECEIVED VERIFIED WITH READBACK METHOD. PT DENIES SOB OR CHEST PAIN. 1L/NC IN PLACE. SpO2 LOW 90'S. LUNGS CLEAR THROUGHOUT. TELE #[address] HR 40-50'S. BLE EDEMA NOTED. SCD'S IN PLACE. PT INCONTINENT OF URINE. NEW PUREWICK PLACED AFTER LUIS CARE. PT DENIES QUESTIONS OR CONCERNS. CALL LIGHT IN REACH. BED ALARM FOR SAFETY.
--- NOTE | 2024-01-07 23:15 | NUR ---
PT CONTINUES TO REPORTS LEG CRAMPS AND RESTLESS LEGS. FELT COVERER ASSIST TO STAND AT THE SIDE OF THE BED AND MARCH IN PLACE. ASSISTED TO RECLINER. PT THEN REPORTS PAIN IN BILAT FEET. PRN FOR PAIN ADMIN PER EMAR. PT REQUESTS TO SIT UP IN RECLINER WITH FEET DOWN FOR A WHILE. HR 35-40'S ON TELE. PT DENIES FEELING LIGHT HEADED OR DIZZY. SpO2 HIGH 90'S ON 1L/NC. NO FURTHER NEEDS. PT IN VIEW OF NURSES STATION. CALL LIGHT IN REACH.
[2024-01-08] VITALS (21 sets, daily range): BP systolic 88–184; BP diastolic 32–136
[2024-01-08] MEDS ORDERED: ATROPINE SULFATE 1 MG/10 ML SYR IV ONE ×2 (00:15)
--- NOTE | 2024-01-08 00:20 | NUR ---
APPROX 2330 PT DOZING ON AND OFF IN RECLINER. STATES "I'M SO SLEEPY" 1PA TO BED. HR IN THE 40'S WITH ACTIVITY. THIS RN LEFT THE ROOM AFTER SETTING BED ALARM. NOTED HR LOW 30'S ON TELE. IN TO ASSESS BP. BP LOW, PT LESS RESPONSIVE. MD NOTIFIED. NEW TELEPHONE ORDERS RECEIVED VERIFIED WITH READBACK METHOD. AT APPROX 0010 IN TO ADMINISTER ATROPINE. HR MINIMALLY RESPONSIVE TO 40'S. PT RESPONDS TO PAINFUL STIMULI. MD ON FLOOR. VERBAL ORDERS RECEIVED FOR ADDITIONAL DOSE OF ATROPINE AND TO TRANSFER PT TO CCU. PT TRANSPORTED TO CCU ROOM 128 AT APPROX 0020 WITH ALL PERSONAL BELONGINGS. REPORT GIVEN TO CCU RN.
--- NOTE | 2024-01-08 00:28 | NUR ---
PT ARRIVES TO ROOM 128 VIA BED WITH MS RN AND GUEST SERVICE MANAGER, PRESENT. PT RESPONDING TO PAINFUL STIMULI ONLY, HR 30'S ON HEART MONITOR. NOREPI DRIP STARTED - SEE FLOWSHEET FOR TITRATION. ADDITIONAL IV ACCESS OBTAINED BY OTHER RN - LABS COLLECTED. EKG OBTAINED AND READ BY MD. 1 LITER BOLUS STARTED PER VERBAL ORDER.
[2024-01-08] MEDS ORDERED: ATROPINE SULFATE 1 MG/10 ML SYR IV PRN (00:30)
[2024-01-08] MEDS ORDERED: NOREPINEPHRINE BITARTRATE 250 ML IV SCH (00:30)
[2024-01-08 00:44] LABS: EOSINOPHILS 2.9 % (0-6); HEMATOCRIT 36.2 % (35.0-50.0); HEMOGLOBIN 12.3 g/dL (12.0-18.0); LYMPHOCYTES 43.9 % (24-44); MCH 31.9 (27-36); MCHC 34.1 g/dl (30-36); MCV 93.5 fl (81-99); MONOCYTES 13.6 % (0-12); NEUTROPHILS 38.6 % (39-80); PLATELET COUNT 107 K/uL (140-440); RBC 3.87 M/ul (4.3-5.7); RDW 15.2 (10.5-15.0)
[2024-01-08] MEDS ORDERED: LACTATED RINGER'S 1,000 ML IV ONE (00:45)
[2024-01-08] MEDS ORDERED: Dobutamine HCl/D5w 250 ML IV ONE (00:54)
[2024-01-08 00:57] LABS: ANION GAP 10.2 (7-21); BUN/CREATININE RATIO 23.46 (6.0-28.6); CALCIUM 8.9 mg/dL (8.5-10.1); CREATININE, SERUM 1.79 mg/dL (0.55-1.02); MAGNESIUM 2.2 mg/dL (1.8-2.4); PHOSPHORUS, INORGANIC 4.1 mg/dL (2.5-4.9); POTASSIUM 5.2 mmol/L (3.5-5.1)
[2024-01-08] MEDS ORDERED: Dobutamine HCl/D5w 250 ML IV SCH ×2 (01:00→01:15)
--- NOTE | 2024-01-08 01:00 | NUR ---
HR RESPONDING MINIMALLY TO NOREPI DRIP, VERBAL ORDER RECEIVED TO SWITCH TO DOBUTAMINE. SEE FLOWSHEET FOR TITRATION. PT BECOMES ALERT AND VERBALIZING WITH THIS RN AND MD THAT SHE DOES NOT WANT ANY INTERVENTIONS AND WISHES TO "GO HOME TO GOD". MD NOTIFING FAMILY.
--- NOTE | 2024-01-08 01:40 | NUR ---
FAMILY AT BEDSIDE - MEDICATION AND CARE QUESTIONS ANSWERED. PT REMAINS ALERT IN COHERENT WITH CONVERSATION. PT REFUSES PACEMAKER INTERVENTION, DNR/DNI.
--- NOTE | 2024-01-08 02:44 | NUR ---
MD IN ROOM DISCUSSING PLAN OF CARE WITH FAMILY. ALL QUESTIONS ANSWERED. PT CONTINUES TO EXPRESS DESIRE TO WITHDRAW CARE AND PASS QUICKLY, PT STATES "I WANT TO GET THIS OVER". FAMILY REQUESTS A MOMENT TO CALL FAMILY. DOBUTAMINE DRIP REMAINS ON AT THIS TIME, HR 50'S.
[2024-01-08] MEDS ORDERED: MORPHINE SULFATE 4 MG/ML VIAL IV PRN (03:00)
[2024-01-08] MEDS ORDERED: ondansetron HCL 4 MG/2 ML VIAL IV PRN (03:00)
[2024-01-08] MEDS ORDERED: ATROPINE SULFATE 1% OPTH DROPS SL PRN (03:00)
[2024-01-08] MEDS ORDERED: LORazepam 2 MG/ML VIAL IV PRN (03:00)
[2024-01-08] MEDS ORDERED: ARTIFICIAL TEARS 15 ML BTL OU PRN (03:00)
--- NOTE | 2024-01-08 03:35 | NUR ---
RN IN ROOM TO REPOSISTION PT. 2MG MORPHINE ADMINISTERED BY OTHER RN FOR LEG PAIN. PT STATES SHE IS "OK WITH TURNING IT OFF" WHEN ASKED IF SHE WOULD LIKE CARDIAC MEDICATION TO BE STOPPED. PT NOW SALINE LOCKED. FAMILY IN ROOM AND PROVIDED CHAIRS AND REFRESHMENTS NEEDED.
--- NOTE | 2024-01-08 04:43 | NUR ---
PT NOTED TO HAVE HR 130 ON MONITOR, SUSTAINED TACHYCARDIA. PT RESTING IN BED APPEARS COMFORTABLE AND WITHOUT DISTRESS. FAMILY AT SIDE. DENIES NEEDS AT THIS TIME.
[2024-01-08 05:52] LABS: EOSINOPHILS 2.5 % (0-6); HEMATOCRIT 34.6 % (35.0-50.0); HEMOGLOBIN 11.7 g/dL (12.0-18.0); LYMPHOCYTES 27.8 % (24-44); MCH 32.2 (27-36); MCHC 33.9 g/dl (30-36); MONOCYTES 12.2 % (0-12); NEUTROPHILS 56.5 % (39-80); PLATELET COUNT 104 K/uL (140-440); RBC 3.64 M/ul (4.3-5.7); RDW 14.7 (10.5-15.0)
[2024-01-08 06:04] LABS: ANION GAP 11.5 (7-21); BUN/CREATININE RATIO 21.96 (6.0-28.6); CALCIUM 8.7 mg/dL (8.5-10.1); CREATININE, SERUM 1.73 mg/dL (0.55-1.02); POTASSIUM 4.5 mmol/L (3.5-5.1)
--- NOTE | 2024-01-08 06:11 | NUR ---
pt reposistioned and attends changed. Clean purewik placed. pt did not awake with movement. no signs of pain at this time. pt placed on 1l 02 via nc to maintain sp02 >90%. Family at bedside, denies needs at this time.
--- NOTE | 2024-01-08 07:15 | NUR ---
Report received from night order selector RN. Patient resting in bed with eyes closed, even and unlabored respirations, no needs identified at this time, family at bedside, agreeable to plan of care.
--- NOTE | 2024-01-08 07:33 | NUR ---
UR CLINICAL REVIEW: 2 MN FOR VERSALUS-MEETS INPT CRITERIA MEDICARE INPT 01/07/24 @ 0821 ORDER MATCHES REG NO AUTH REQUIRED PER MEDICARE GUIDELINES. DISCHARGE PENDING FURTHER EVALUATION AND FAMILY CONFERENCE.
--- NOTE | 2024-01-08 08:28 | NUR ---
Rounded on patient who is resting in bed with no needs identified at this time, family denies needs as well. Call light in reach.
[2024-01-08] MEDS ORDERED: ENOXAPARIN SODIUM 40 MG/0.4 ML SYR SUB-Q SCH (09:00)
[2024-01-08] MEDS ORDERED: SCOPOLAMINE 1 MG/3 DAYS PATCH 1 EACH TDSY TD SCH (09:00)
--- NOTE | 2024-01-08 09:44 | NUR ---
Rounded in room with hospitalist, patient resting in bed with eyes closed, even and unlabored respirations, VSS. Family at bedside, needs continued education regarding patient status and discharge disposition. Patient has no needs at this time. Call light in reach.
--- NOTE | 2024-01-08 10:29 | NUR ---
Scopalamine patch applied per order, patient family refused injection of lovenox, patient is unresponsive at this time, even and unlabored respirations noted, no needs identified at this time, pt appears comfortable. Family at bedside.
--- NOTE | 2024-01-08 11:30 | NUR ---
Spoke with Tyler and Jessica. Pt remains asleep and not responding to voice. Spoke with family and attempted to discuss a plan for moving forward. FAmily feel pt is sleeping from a dose of Morphine and will awaken. They state they have had a very busy schedule the last few days. Lanette decided to move back with them and they pick her up from [place] and moved her to [place]. Lanette then came to the hospital. We discussed Palliative care and end of life care. Family are concerned on Hospice pt would be resusitated and we discussed this would be comfort care. Pt would not return to the hospital, nurses are available and OC. FAmily then state they had hospice for the grandfather and he lived with them. If pt does not awaken they would be willing to take her home on hospice and provide care. If pt does awaken, they would consider Palliative care through HH at . Pt could return to the hospital and further treatment. A nurse would visit to monitor, educate, pt could have PT/OT if needed. Jessica asks I call pts daughter Heydi.
--- NOTE | 2024-01-08 13:30 | NUR ---
Patient awake, somewhat confused to surroundings, states needing to void. Reminded of purewick in place, patient agreeable to using, quickly forgets and requests assistance to void. Family at bedside encouraging patient care and reorienting patient. Repositioned in bed using draw sheet, patient very weak and demonstrating limited mobility. Pt takes a few bites of fruit from lunch tray, sips of water. No further needs at this time.
--- NOTE | 2024-01-08 14:00 | NUR ---
Called and left Heydi a message requesting a return call.
--- NOTE | 2024-01-08 14:12 | NUR ---
VISITED DURING SPIRITUAL CARE ROUNDS. PT IN PHONE CONVERSATION, VISITED WITH COMPANIONS AT BEDSIDE, BOTH OF WHOM DENIED IMMEDIATE NEEDS. STATISTICAL MACHINE SERVICER PROVIDED SUPPORTIVE PRESENCE, HOSPITALITY, PRAYER, FACILITATED INTERACTION WITH VISITING THERAPY ANIMAL.
--- NOTE | 2024-01-08 14:58 | NUR ---
Called and spoke with Samantha Case. Pt is awakening somewhat.
--- NOTE | 2024-01-08 15:27 | NUR ---
Patient resting in bed, on RA. VSS- more hypertensive now, with pressures 142/51, HR remains in 60s. Family at bedside. CM updated on patient status.
--- NOTE | 2024-01-08 15:50 | EKG ---
[facility] [address] [facility] [place] [address] Signed Junctional bradycardia Right bundle branch block T wave abnormality, consider inferior ischemia Abnormal ECG When compared with ECG of 26-DEC-2022 13:44, No significant change was found Confirmed by Maxi Kelly MD ([id number]) on 01/08/2024 3:49:47 PM Electronically Signed By: MAXI KELLY MD 01/08/24 1550 PATIENT NAME: CARMEN KNOWLESA YOLANDA Electrocardiogram DATE OF : 38 PHYSICIAN: MAXI KELLY MD REPORT #: [id number] REPORT IS CONFIDENTIAL AND NOT TO BE RELEASED WITHOUT AUTHORIZATION
--- NOTE | 2024-01-08 16:16 | EKG ---
[facility] [address] [facility] [place], [place] [address] Signed Junctional bradycardia Right bundle branch block Abnormal ECG When compared with ECG of 07-JAN-2024 01:05, (Unconfirmed) No significant change was found Confirmed by Maxi Kelly MD ([id number]) on 01/08/2024 4:15:51 PM Electronically Signed By: MAXI KELLY MD 01/08/24 1616 PATIENT NAME: CARMEN KNOWLESA YOLANDA Electrocardiogram DATE OF : 38 PHYSICIAN: MAXI KELLY MD REPORT #: [id number] REPORT IS CONFIDENTIAL AND NOT TO BE RELEASED WITHOUT AUTHORIZATION
--- NOTE | 2024-01-08 16:36 | NUR ---
BEDSIDE REPORT RECEIVED FROM BRIGETTE CHÁVEZ AT 1430. PT AND PT BELONGNINGS ESCORTED TO MED-SURG ROOM 110 VIA BED. VISITOR X1 IN ROOM. PT IS AWAKE AND ALERT, FOLLOWS COMMANDS. PT ORIENTED TO ROOM. CALL LIGHT IN REACH.
--- NOTE | 2024-01-08 17:15 | NUR ---
O2 89% UPON ARRIVAL TO UNIT, 1L O2 VIA NC APPLIED, PT O2 SATS UP TO 97%. DENIES SOB OR CHEST PAIN AT THIS TIME. DENIES PAIN. RESTS IN BED ON CELL PHONE. CALL LIGHT IN REACH. NO REQUESTS AT THIS TIME.
--- NOTE | 2024-01-08 18:30 | NUR ---
PT SITS UP ON BEDSIDE ON CELL PHONE, DINNER IN ROOM. CALL LIGHT IN REACH, NO REQUESTS AT THIS TIME.
--- NOTE | 2024-01-08 18:48 | NUR ---
SCOPOLAMINE PATCH REMOVED FROM BEHIND LEFT EAR.
--- NOTE | 2024-01-08 18:49 | NUR ---
IN TO ROUND ON PT. PT SITTING ON EDGE OF BED, JUST FINISHED HER SUPPER TRAY. PT IS SPEAKING TO HER DAUGHTER ON HER PHONE. DAUGHTER HAS QUESTIONS REGARDING PT, ANSWERED. PT REQUESTS WARM BLANKETS AND KLEENEX, PROVIDED. SCDs PLACED ON PTs LEGS SHE WISHES TO CONTINUE SITTING AFTER SUPPER, PT APPRECIATED AND STATES "THOSE FEEL SO GOOD." NO OTHER NEEDS AT THIS TIME, CALL LIGHT AND PERSONAL BELONGINGS IN REACH.
--- NOTE | 2024-01-08 19:44 | NUR ---
BEDSIDE REPORT RECEIVED FROM BRIGETTE FUENTES. pt RESTING IN BED SITTING AT SIDE OF BED ON PHONE. 1L OXYGEN BY NC IN PLACE, HR 90S ON TELE 1. pt DENIES NEEDS. CALL LIGHT IN REACH. VERBALIZES UNDERSTANDING TO NOT GET OUT OF BED WITHOUT ASSIST.
--- NOTE | 2024-01-08 20:35 | NUR ---
pt SITTING UP AT SIDE OF BED. pt REQUESTING TO GET UP FOR BM, LEGS WEAK, UNSTEADY. 2 RNS IN ROOM, ASSISTED TO BSC WITH FWW, 1PA, CONTACT GUARD ASSIST. pt CLEANED UP, INCONTINENT OF URINE, NEW ATTENDS PLACED. pt BACK IN BED. PUREWICK PLACED FOR SLEEP PER pt AND FAMILY REQUEST. ASSESSMENT COMPLETE. IV SITE FLUSHED, IV IN LEFT AC LEAKING, DC'D WNL. pt VISITING WITH FAMILY. CALL LIGHT IN REACH.
[2024-01-09] VITALS (10 sets, daily range): BP systolic 119–152; BP diastolic 38–92
--- NOTE | 2024-01-09 | NUR ---
CHECKED ON pt. RESTING IN BED WITH EEYS CLOSED, OCCASIONAL SHIFTING IN BED. HR IRREGULAR, 40S ON TELE 2.
--- NOTE | 2024-01-09 00:40 | NUR ---
UPDATED MD ON PAUSE, HR DOWN TO 20S ON TELE, NOW IN THE 40S. NOTIFIED MD THAT pt IN FAMILY STILL DISCUSSING PACEMAKER AND pt CONSIDERING HAVING PROCEDURE DONE.
--- NOTE | 2024-01-09 01:36 | NUR ---
IN ROOM FOR VS. pt STATES SHE WAS AWAKE, NEVER SLEEPS MORE THAN AN HOUR OR TWO. ASSESSMENT COMPLETE. VS STABLE. SPO2 97% WITH 1L OXYGEN BY NC ON. pt OFFERED DRINKS OF WATER, DECLINES. WARM BLANKET PROVIDED. CALL LIGHT IN REACH.
--- NOTE | 2024-01-09 02:11 | NUR ---
THIS AFTER SCHOOL COUNSELOR AND AFTER SCHOOL COUNSELOR KIARA DONNED PPE AND ENTERED ROOM. PT STATED THAT SHE NEEDED TO USE THE BATHROOM TO HAVE A BM. PT 2 PA PIVOT TO BSC. PT VOIDED AND ASSISTED BACK TO BED. PT ASIF AND [place] CHANGED. CNAS THEN OBTAINED VITALS AND I&O. PT STATES NO FURTHER NEEDS AT THIS TIME. CALL LIGHT WITHIN REACH AND BED ALARM ON.
--- NOTE | 2024-01-09 03:28 | NUR ---
CHECKED ON Pt. pt RESTING IN BED ON RIGHT SIDE, BREATHING UNLABORED, EYES CLOSED. HR 49-51 ON TELE 2.
--- NOTE | 2024-01-09 05:39 | NUR ---
WINDER TENDER OBTAINED VITALS AND OUTPUT. NO NEW INTAKE AT THIS TIME. PT ICE WATER REFILLED. PT STATES NO FURTHER NEEDS AT THIS TIME. CALL LIGHT WITHIN REACH.
--- NOTE | 2024-01-09 05:43 | NUR ---
VSS. ICE WATER REFILLED. pt RESTING IN BED. DENIES ANY NEEDS. CALL LIGHT IN REACH.
[2024-01-09 05:51] LABS: BASOPHILS 0.7 % (0-2); EOSINOPHILS 3.9 % (0-6); HEMATOCRIT 38.5 % (35.0-50.0); HEMOGLOBIN 12.9 g/dL (12.0-18.0); LYMPHOCYTES 36.6 % (24-44); MCH 31.7 (27-36); MCHC 33.5 g/dl (30-36); MCV 94.6 fl (81-99); MONOCYTES 12.5 % (0-12); NEUTROPHILS 46.3 % (39-80); PLATELET COUNT 120 K/uL (140-440); RBC 4.07 M/ul (4.3-5.7); RDW 14.9 (10.5-15.0)
[2024-01-09 06:02] LABS: ANION GAP 10.7 (7-21); BUN/CREATININE RATIO 20.51 (6.0-28.6); CREATININE, SERUM 1.56 mg/dL (0.55-1.02); POTASSIUM 4.7 mmol/L (3.5-5.1)
--- NOTE | 2024-01-09 07:00 | NUR ---
REPORT RECIEVED FROM BRIGETTE KIM. PT LAYING IN BED AND RESPONDS WHEN ADDRESSED. PT DENIES ANY NEEDS AT THIS TIME. CALL LIGHT IN REACH.
--- NOTE | 2024-01-09 08:41 | NUR ---
IN TO ROUND ON PT. PT SITTING UP IN BED AND RESPONDS WHEN ADDRESSED. PT REPORTING NOT RECIEVING BREAKFAST TRAY. ILIANA ACEVEDO CALLS KITCHEN TO ASK ABOUT TRAY. ASSESSMENT COMPLETE. PT DENIES PAIN AT THIS TIME. LUNG SOUNDS CLEAR, YET DIMINISHED IN THE BASES. BOWEL TONES ACTIVE. PT DENIES ABD TENDERNESS WITH PALPATION. HEART TONES BRADYCARDIC. PT REPORTING SOB WITH EXERTION, BUT NOT AT THIS TIME. PT DENIES CHEST PAIN. O2 SATS 95% ON 1L NC. HR BETWEEN 49-54. EDEMA NOTED TO BLE. BLE ELEVATED IN BED WITH PILLOW, SCD's IN PLACE. IV FLUSHES WNL. 0850 DIETARY HERE WITH PTs TRAY. PT ASSISTED TO SITTING ON EDGE OF BED FOR MEAL. PT DENIES ANY OTHER NEEDS AT THIS TIME. CALL LIGHT IN REACH.
--- NOTE | 2024-01-09 09:52 | NUR ---
SPOKE TO PATIENT ABOUT THE DISCHARGE PLAN. PATIENT CURRENTLY LIVES WITH HER SON.PATIENT IS SLEEPY AND IS HARD OF HEARING. ONE OF THE PATIENT'S SON IS AT BEDSIDE. CM TOLD THE SON THAT I AM AVAILABLE TO DISCUSS THE PATIENTS NEEDS. PATIENT KEEPS FALLING TO SLEEP THE CM WILL RETURN WHEN THE SON THAT IS THE POA COMES TO VISIT AND MAYBE PATIENT WILL BE MORE AWAKE.
--- NOTE | 2024-01-09 10:34 | NUR ---
PATIENT IS SITTING IN BED VISITING WITH DAUGHTER.PATIENT FEELS MUCH BETTER TODAY. PATIENT PLANS TO MOVE IN WITH HER SON WHEN DISCHARGED. WILL WORK WITH PT TODAY. HOME WHEN MEDICALLY STABLE.
--- NOTE | 2024-01-09 11:03 | NUR ---
TOOK [place] OUT AT [facility] THIS MORNING.
--- NOTE | 2024-01-09 11:06 | NUR ---
IN TO ROUND ON PT. PT SITTING UP IN BED VISITING WITH FEMALE VISITOR. PT DENIES ANY NEEDS AT THIS TIME. CALL LIGHT IN REACH.
--- NOTE | 2024-01-09 12:56 | NUR ---
IN WITH DR. GALAVIZ. PT SITTING UP ON EDGE OF BED AND RESPONDS WHEN ADDRESSED. PTs FAMILY MEMBER IN ROOM. PT AND DR. GALAVIZ DISCUSS POC. PT AGREEABLE. PT REPORTING BEING DONE WITH LUNCH TRAY, TRAY REMOVED. PT DENIES ANY OTHER NEEDS AT THIS TIME. CALL LIGHT IN REACH.
--- NOTE | 2024-01-09 13:06 | NUR ---
PATIENT STATES SHE SPOKE TO THE DOCTOR ABOUT NEEDING A PACEMAKER. THE PATIENT WANTS THE PACEMAKER AND STATES"EVERYONE TALKING TO ME HAS CHANGED MY MIND".
--- NOTE | 2024-01-09 13:44 | NUR ---
[facility] CALLED AND REQUESTED RECORDS FOR THE PATIENT FOR POSSIBLE ADMIT IN THE FUTURE WHEN THE PATIENT AND FAMILY ARE READY. RECORDS SENT.
--- NOTE | 2024-01-09 15:00 | NUR ---
IN TO ROUND ON PT. PT RESTING IN BED ON LEF SIDE. PT RESPONDS WHEN ADDRESSED AND SITS UP FOR THIS RN TO COMPLETE ASSESSMENT. ASSESSMENT COMPLETE. LUNG SOUNDS CLEAR. HEART TONES IRREGULAR. PT DENIES ANY PAIN AT THIS TIME. CALL LIGHT IN REACH. BED ALARM ON.
--- NOTE | 2024-01-09 16:20 | NUR ---
IN TO OBTAIN VITALS AND UPDATE PT ON POC AND PT BEING TRANSFERRED. PT AGREEABLE. PEDAL PULSES PALPABLE, STRONG AND EQUAL. EDEMA NOTED TO BILATERAL FEET. SCAB NOTED TO LEFT NUÑEZ. SCATTERED BRUISING NOTED TO BILATERAL ARMS. PT REPORTING TOILETING NEEDS. ILIANA CORTES IN TO ASSIST WITH TUBING AND TELE. 1PA WITH FWW FROM BED TO RESTROOM. VOID NOTED. 1PA WITH FWW BACK TO BED. PT DENIES ANY OTHER NEEDS AT THIS TIME. CALL LIGHT IN REACH.
--- NOTE | 2024-01-09 17:17 | NUR ---
EMS HERE TO TAKE PT TO [facility]. 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 PT LEAVES WITH EMS AT [phone] THIS RN CALLS REPORT TO [facility] AND GIVES TO REPORT OVER THE PHONE TO BRIGETTE ROGERS. QUESTIONS ANSWERED.
== END 2024-01-09 17:29 | disposition short-term general hospital (02) | DRG 291 ==
LOC: ED 00:52 → MS 00:54 → CCU 08:21 → MS 08:21 → CCU 01-08 00:29 → MS 01-08 16:44
PROVIDERS: Family Medicine; ADMIT Student in an Organized Health Care Education/Training Program; ATTEND Student in an Organized Health Care Education/Training Program
DX: I11.0 Hypertensive heart disease with heart failure (principal); I50.33 Acute on chronic diastolic (congestive) heart failure; J96.21 Acute and chronic respiratory failure with hypoxia; R57.0 Cardiogenic shock; N17.9 Acute kidney failure, unspecified; Z66 Do not resuscitate; Z51.5 Encounter for palliative care; I27.20 Pulmonary hypertension, unspecified; I25.10 Atherosclerotic heart disease of native coronary artery without angina pectoris; I48.91 Unspecified atrial fibrillation; Z95.1 Presence of aortocoronary bypass graft; I08.3 Combined rheumatic disorders of mitral, aortic and tricuspid valves; Z88.0 Allergy status to penicillin; I25.2 Old myocardial infarction; Z79.899 Other long term (current) drug therapy; Z98.890 Other specified postprocedural states
CPT/HCPCS: 36415; 71045; 80048; 80053; 82803; 83735; 83880; 84100; 84443; 84484; 85025; 93005; 93010; 93306; 93970; 94760; 94762; 96374; 97161; 99285-25; A9270; G0378; J0461; J1250; J1940; J2270; J7121

== ENCOUNTER 2024-05-09 20:20 | Inpatient (IN) | payer MEDICARE, MEDICAID ==
[~2024-05-09] VITALS: Ht 160 cm; Wt 59.9 kg
--- NOTE | ~2024-05-09 | EKG ---
[facility] [address] [facility] [place], [place] [address] Draft EK completed, results pending confirmation PATIENT NAME: CARMEN KNOWLESA YOLANDA Electrocardiogram DATE OF : 38 PHYSICIAN: PRELIMINARY REPORT #: [id number] REPORT IS CONFIDENTIAL AND NOT TO BE RELEASED WITHOUT AUTHORIZATION
[~2024-05-09 20:20] MED LIST changes: +POTASSIUM GLUCO99 MG PO
[2024-05-09 20:51] LABS: BASOPHILS 1.5 % (0-2); EOSINOPHILS 1.7 % (0-6); HEMATOCRIT 31.2 % (35.0-50.0); HEMOGLOBIN 9.8 g/dL (12.0-18.0); LYMPHOCYTES 25.4 % (24-44); MCH 27.3 (27-36); MCHC 31.3 g/dl (30-36); MCV 87.3 fl (81-99); MONOCYTES 14.3 % (0-12); NEUTROPHILS 57.1 % (39-80); PLATELET COUNT 227 K/uL (140-440); RBC 3.57 M/ul (4.3-5.7); RDW 16.9 (10.5-15.0)
[2024-05-09 21:13] LABS: ALBUMIN 3.5 g/dL (3.4-5.0); ALBUMIN/GLOBULIN RATIO 0.92 (1.1-2.4); BILIRUBIN, TOTAL 0.8 ng/dL (0.2-1.0); BUN/CREATININE RATIO 22.51 (6.0-28.6); CALCIUM 9.6 mg/dL (8.5-10.1); CREATININE, SERUM 1.91 mg/dL (0.55-1.02); MAGNESIUM 2.7 mg/dL (1.8-2.4); PROTEIN, TOTAL 7.3 g/dL (6.4-8.2)
[2024-05-09] MEDS ORDERED: FUROSEMIDE 100 MG/10 ML VIAL IV ONE (21:45)
[2024-05-09] MEDS ORDERED: POTASSIUM CHLORIDE 10 MEQ TABCR PO ONE (21:45)
[2024-05-09] MEDS ORDERED: ACETAMINOPHEN 325 MG TAB PO PRN (23:15)
[2024-05-09] MEDS ORDERED: ondansetron HCL 4 MG/2 ML VIAL IV PRN (23:15)
--- NOTE | 2024-05-09 23:31 | NUR ---
PT HERE FROM ER.
[2024-05-09 23:39] VITALS: BP 118/37
[2024-05-10] VITALS (9 sets, daily range): BP systolic 103–127; BP diastolic 36–78
--- NOTE | 2024-05-10 00:02 | NUR ---
pt awakened for po diflucan for pt complaint of vaginal itch. possible yeast. pt denies other complaints or needs, and goes back to sleep after demonstrating RT trumpet. call light in reach - bed alarm on.
[2024-05-10] MEDS ORDERED: MAGNESIUM HYDROXIDE/AL HYDROX 30 ML CUP PO PRN (00:30)
--- NOTE | 2024-05-10 00:48 | NUR ---
PT REQUESTED SOMETHING FOR ACID REFLUX. MALOX NIO GIVEN PO. BACK TO REST IN BED WITH CALL LIGHT AND REPEAT BP TAKEN.
--- NOTE | 2024-05-10 01:18 | NUR ---
PT DAUGHTER ROB CALLED FOR UPDATE. INFORMED OF LASIX, OUTPUT AND PT RESTING COMFORTABLE AT THIS TIME.
--- NOTE | 2024-05-10 03:20 | NUR ---
RECEIVED REPORT FROM HOWARD JAMESON RN. PATIENT UP TO BR A SBA W/FWW. PATIENT ABLE TO VOID AND HAVE BM. ASSESMENT COMPLETED. PATIENT REPORTS SOB WITH AMBULATION. PATIENT IS ON 2L VIA NC. CPOX IN USE. PUREWICK IN PLACE. WARM BLANKET PROVIDED. PATIENT DENIES ANY FURTHER NEEDS. CALL LIGHT IN REACH. IV FLUSHED AND SL PER ORDER.
--- NOTE | 2024-05-10 05:19 | NUR ---
PATIENTS VITALS TAKEN AND RECORDED. INTAKE AND OUTPUT RECORDE. PATIENT UP TO RECLINER. PATIENT HAS 2L VIA OXYMASK IN PLACE. PATIENT HAS CPOX IN USE. ICE WATER AND WARM BLANKET PROVIDED. PATIENT DENIES ANY FURTHER NEEDS. CALL LIGHT IN REACH.
[2024-05-10 05:49] LABS: ANION GAP 8.6 (7-21); BUN/CREATININE RATIO 23.72 (6.0-28.6); CALCIUM 9.3 mg/dL (8.5-10.1); CREATININE, SERUM 1.77 mg/dL (0.55-1.02); POTASSIUM 4.6 mmol/L (3.5-5.1)
--- NOTE | 2024-05-10 07:39 | NUR ---
RECEIVED REPORT FROM GREGORIO ROBLES. PT SITTING UP IN THE CHAIR, SLEEPING AND DID NOT AWAKEN WHEN ENTERED ROOM. CALL LIGHT WITHIN REACH. PT ALLOWED TO REST, NO NEEDS AT THIS TIME.
--- NOTE | 2024-05-10 08:37 | NUR ---
Board has brrn updated and patient is ready for breakfeast, patient was sleep in the chair when doing rounds
--- NOTE | 2024-05-10 08:45 | NUR ---
PT SITTING UP IN CHAIR HAVING BREAKFAST, SWITCHED PATIENT FROM OXI-MASK TO THE NASAL CANNULA WHILE SHE IS EATING, 3+ EDEMA TO TOMY LE, PT DOES REPORT PAIN TO FEET WHEN SHE IS STEPPING ON FEET, JUST SORE IN THE FEET/LOWER LEGS. INFORMED PT TO BE CAREFUL WITH FLUID INTAKE. WILL BE WATCHING HER OUTPUT CLOSELY TODAY. VS STABLE. CALL LIGHT WITHIN REACH, ALL PT CARE NEEDS MET.
[2024-05-10] MEDS ORDERED: ALBUTEROL SULFATE 0.083% 3 ML VIAL ONE (09:59)
[2024-05-10] MEDS ORDERED: ALBUTEROL SULFATE 0.083% 3 ML VIAL INH PRN (10:00)
[2024-05-10] MEDS ORDERED: ELIQUIS2.5 MG PO (11:05)
--- NOTE | 2024-05-10 11:13 | NUR ---
Patient appears to be a bit tired after breakfeast. She's been sitting in her recliner chair on the phone with her daughter who lives in [place]. No request from patient at this time, call light has been placed within reach
[2024-05-10] MEDS ORDERED: PHARMACY RENAL DOSE ADJUSTMENT 1 DOSE MISC PO SCH (12:00)
[2024-05-10] MEDS ORDERED: ondansetron HCL 4 MG/2 ML VIAL IV PRN (12:00)
[2024-05-10] MEDS ORDERED: ACETAMINOPHEN 325 MG TAB PO PRN (12:00)
[2024-05-10] MEDS ORDERED: ENOXAPARIN SODIUM 30 MG/0.3 ML SYR SUB-Q SCH (12:30)
[2024-05-10] MEDS ORDERED: FUROSEMIDE 40 MG/4 ML VIAL IV SCH (13:00)
--- NOTE | 2024-05-10 13:45 | NUR ---
IV LASIX ORDERED, IV SITE WENT BAD WHEN ATTEMPTING TO INFUSE. PRIVACY ATTORNEY TO START NEW IV SITE. PT ASSISTED FROM CHAIR TO BED FOR COMFORT. FEET ELEVATED ON PILLOWS. PT DENIES ANY NEEDS AT THIS TIME.
--- NOTE | 2024-05-10 14:01 | NUR ---
#22 PROCATH TO RIGHT WRIST. PATIENT TOLERATED IV START WELL.
--- NOTE | 2024-05-10 14:50 | NUR ---
PT ATTEMPTING TO GET OUT OF BED, STATES SHE HAS (R) UPPER SHOULDER PAIN, DENIES CHEST PAIN, TELEMETRY SR IN THE 60'S AT THIS TIME. O2 94% ON HER OXYGEN, CPOX IN PLACE. PATIENT WANTED UP TO CHAIR, FEET ELEVATED AGAIN. WARM PACK APPLIED TO (R) SHOULDER. CALL LIGHT WITHIN REACH, OFFERED AND PT DENIES NEED FOR TYLENOL. WILL CONTINUE TO MONITOR.
--- NOTE | 2024-05-10 15:29 | NUR ---
PATIENT UP TO BM IN BATHROOM. KATERINE GrowEFREN. PATIENT IS RESTING IN BED, 2L 02 IS ON.
--- NOTE | 2024-05-10 17:20 | NUR ---
in room with pt and dtg on speaker phone. pt co r shoulder bone pain, no known injury or fall. pt asking for xray and it is ordered. po tyleonl given for comfort and ensure juice, cjuice and apple sause given pt refused to sit in chair at this time and xray is on the way for portable. pt has call light in reach and hob up.
[2024-05-10] MEDS ORDERED: LIDOCAINE HCL 4% 1 EACH PATCH TD SCH (18:00)
--- NOTE | 2024-05-10 19:07 | NUR ---
pt son and dil in room and pt dtg on phone. updated all to plan of care and pt report of new r shoulder pain, charge entry clerk and installation technician both in room with this rn- let family know that discomfort could be from the xray showing r atelectisis and r pleaural effusion. Re assured everyone that dr was notified and xray was done for the concern and pending and that pt was given po tylenol and a lidocain patch was again offered and pending pharmacy. pt then wanted reposisioned in bed and acutally wanted to be turned to lay on her right shoulder to move off her bottom. waffle mattress for bed and chair provided. everyone is in agreement with plan and efforts and pt is resing with an ensure at side and call light in reach.
--- NOTE | 2024-05-10 20:00 | NUR ---
ANSWERED CALL LIGHT. 1 PA TO BATHROOM USING WALKER. PATIENT HAD SMALL SOFT BM. LUIS CARE ASSISTED. PATIENT IS UP IN THE CHAIR AT THIS TIME PER PATIENT'S REQUEST. FAMILY IS IN THE ROOM. CALL LIGHT IS WITHIN PATIENT'S REACH. WAFFLE OVERLAY PLACED.
[2024-05-10] MEDS ORDERED: LIDOCAINE PATCH REMOVAL 1 EA TD SCH (21:00)
[2024-05-10] MEDS ORDERED: APIXABAN 2.5 MG TAB PO SCH (21:00)
--- NOTE | 2024-05-10 23:34 | NUR ---
CALL LIGHT ANSWERED. PATIENT IS READY TO GO TO BED. 1 PA. PUREWICK IN PLACED.WARM BLANKET PROVIDED. BED ALARM ON. CALL LIGHT WITHIN REACH. FAMILY LEFT HOME.
[2024-05-11] VITALS (9 sets, daily range): BP systolic 94–137; BP diastolic 37–46
--- NOTE | 2024-05-11 00:05 | NUR ---
pt resting in bed, eyes closed, call light in reach.
--- NOTE | 2024-05-11 00:33 | NUR ---
PT ASKS NOT TO BE AWAKEND FOR A WHILE IN ORDER TO SLEEP, CALL LIGHT IN REACH.
--- NOTE | 2024-05-11 00:37 | NUR ---
PERFORMANCE IMPROVEMENT MANAGER OF PT ASSESSMENT CHARTING 1030 ASSESSMENT INTENDED TO BE FOR 223O PM 05/10/24. PANTOGRAPH II ENGRAVER NOTIFIED AND AGREE TO DOCUMENT HERE [employer] WOULD NOT CHANGE TIME EDIT.
--- NOTE | 2024-05-11 00:48 | NUR ---
PATIENT REQUESTED OF AN UNINTERRUPTED SLEEP FOR AT LEAST 3 HOURS.
--- NOTE | 2024-05-11 00:52 | NUR ---
PRIMARY RN WAS NOTIFIED RE PATIENT'S BP.
--- NOTE | 2024-05-11 02:46 | NUR ---
pt reports cramp in left leg - po tylenol given, reports pain was there and now gone, r shoulder pain improved. lido patch on. pt talkative and concerned about blood clots breaking loose. rn offered her the eliquis that she refused at bedtime. continues to refuse - but now worries about getting a clot. educated about blood thinners and need with pacemaker and heart surgeries. patient still declines wanting any blood thinners. reports feeling better at this time and wanting to try to sleep. call light in reach.
--- NOTE | 2024-05-11 03:54 | NUR ---
RECEIVED REPORT FROM BERNA MACHUCA. PATIENT IS RESTING IN BED WITH EYES CLOSED, RR 16. CALL LIGHT IN REACH.
[2024-05-11 05:13] LABS: BASOPHILS 1.1 % (0-2); HEMATOCRIT 26.1 % (35.0-50.0); HEMOGLOBIN 8.5 g/dL (12.0-18.0); LYMPHOCYTES 23.9 % (24-44); MCH 27.8 (27-36); MCHC 32.4 g/dl (30-36); MCV 85.9 fl (81-99); PLATELET COUNT 178 K/uL (140-440); RBC 3.04 M/ul (4.3-5.7); RDW 16.8 (10.5-15.0)
[2024-05-11 05:30] LABS: ALBUMIN/GLOBULIN RATIO 0.94 (1.1-2.4); BILIRUBIN, TOTAL 0.8 ng/dL (0.2-1.0); BUN/CREATININE RATIO 25.13 (6.0-28.6); CALCIUM 9.1 mg/dL (8.5-10.1); CREATININE, SERUM 1.87 mg/dL (0.55-1.02); MAGNESIUM 2.4 mg/dL (1.8-2.4); PROTEIN, TOTAL 6.2 g/dL (6.4-8.2)
--- NOTE | 2024-05-11 05:34 | NUR ---
PATIENTS VITALS TAKEN AND RECORDED. INTAKE AND OUTPUT RECORDED. NEW PUREWICK IN PLACE. PATIENT UP TO SCALE FOR DW. PATIENT BECAME LIGHT HEADED AND DIZZY. PATIENT SAT ON EDGE OF THE BED AND OXYGEN SATURATION NOTED TO BE 84%. PATIENTS OXYGEN TITRATED UP AND PATIENT BOOSTED UP INTO BED. PATIENTS OXYGEN SATURATION RETURENED TO ABOVE 90% AND OXYGEN TITRATED BACK DOWN TO 2L VIA NC. PATIENT REPORTS LIGHT HEADEDNESS DIZZYNESS RESOLVED. PATIENT DENIES ANY SOB OR PAIN. PATIENTS HR ON TELE NOTED TO BE IN THE 60'S ON THE TELE. THIS RN CALLED CCU AND NO CHANGE IN HEART RATE OR RYTHYM NOTED. PATIENT IS IN BED RESTING. PATIENTS IV FLUSHED AND SL PER ORDER. PATIENT DENIES ANY FURTHER NEEDS. CALL LIGHT IN REACH. BED ALARM ON FOR PATIENT SAFETY.
--- NOTE | 2024-05-11 07:46 | NUR ---
RECEVIED REPORT FROM [facility] BRIGETTE ORTEGA. PT RESTING IN BED, EYES OPEN, DENIES ANY NEEDS THIS MORNING. BOOSTED UP IN BED WITH RN, ADJUSTED BEDDING. PT BED ALARM IN PLACE, CALL LIGHT WITHIN REACH. PT DENIES SHE SLEPT MUCH, ALLOWED TO REST THIS MORNING
--- NOTE | 2024-05-11 08:05 | NUR ---
PATIENT IS SITTING ON SIDE OF BED FOR BREAKFAST. PATIENT CHANGED TO 2L 02 VIA NC, WARM BLANKETS PROVIDED, CALL LIGHT IS WITHIN REACH.
--- NOTE | 2024-05-11 08:23 | NUR ---
PT UP ON EDGE OF BED AT THIS TIME, BREAKFAST TRAY SETUP. PT STATES SHE IS FEELING ALITTLE BETTER THIS MORNING, DESPITE LACK OF SLEEP. HOPING SHE CAN GO HOME SOON. DENIES ANY NEEDS AT THIS TIME, 0900 MEDS BEING GIVEN AT THIS TIME. ALL PT CARE NEEDS MET, CALL KARI PAT AT THIS TIME.
--- NOTE | 2024-05-11 08:30 | NUR ---
PATIENT IN BED RESTING AT THIS. WHITE BOARD UPDATED. WARM CLOTH GIVEN. CALL LIGHT IN REACH. NO FURTHER NEEDS AT THIS TIME.
[2024-05-11] MEDS ORDERED: FUROSEMIDE 40 MG TAB PO SCH (09:00)
--- NOTE | 2024-05-11 09:12 | NUR ---
VS STABLE, PT REMAINS ON EDGE OF BED SITTING. DENIES ANY NEEDS, I&OS DOCUMENTED. CALL LIGHT WITHIN REACH, BED ALARM IN PLACE, PT AWARE. ALL PT CARE NEEDS MET AT THIS TIME. WILL CONTINUE TO MONITOR.
[2024-05-11] MEDS ORDERED: ADULT LOW DOSE81 MG PO (10:58)
--- NOTE | 2024-05-11 10:58 | NUR ---
MED REC COMPLETE
--- NOTE | 2024-05-11 10:58 | NUR ---
PATIENT IS UP TO CHAIR, OXYMASK 2L. PATIENT DENIES NEEDS.
--- NOTE | 2024-05-11 11:29 | NUR ---
PT RESTING IN CHAIR, OXIMASK IN PLACE, SATS 93%. FEELS EXHAUSTED OTHERWISE DOING WELL. CALL LIGHT WITHIN REACH, ALL PT CARE NEEDS MET AT THIS TIME.
--- NOTE | 2024-05-11 13:38 | NUR ---
PATIENT SITTING UP IN CHAIR AT THIS TIME. VITALS AND I&O'S DONE AND CHARTED. CALL LIGHT IN REACH. NO FURTHER NEEDS AT THIS TIME.
--- NOTE | 2024-05-11 14:00 | NUR ---
UR CLINICAL REVIEW: 2 MN FOR [facility]ERSAL[facility]-MEETS INPT FOR CHF MEDICARE INPT 05/10/24 @ 1159 ORDER MATCHES REG NO AUTH REQUIRED PER MEDICARE GUIDELINES DISCHARGE TO HOME WHEN STABLE.
--- NOTE | 2024-05-11 15:32 | NUR ---
ALERT AND ORIENTED. FAMILY MEMBERS IN ROOM. LIVES WITH FAMILY IN SINGLE LEVEL HOME. HAS A RAMP TO GET INSIDE. PATIENT HAS WALKER, CANE, SHOWER CHAIR AND OXYGEN WITH HER INOGEN MACHINE, WHICH SHE OWNS. NO DME COMPANY PROVIDES HER OXYGEN. PATIENT DOES NOT DRIVE, FAMILY DRIVES HER. FAMILY DENIES ANY FINANCIAL HARDSHIP. PLAN FOR PATIENT TO RETURN HOME WITH FAMILY WHEN MEDICALLY READY. NO CM NEEDS AT THIS TIME.
--- NOTE | 2024-05-11 15:34 | NUR ---
PT RESTING IN BED AT THIS TIME, FAMILY REMAINS AT BEDSIDE. MD INFORMED FAMILY WAITING FOR MD TO ROUND TODAY FOR UPDATES. ALL PT CARE NEEDS MET AT THIS TIME. WILL CONTINUE TO MONITOR.
--- NOTE | 2024-05-11 16:10 | NUR ---
PT RESTING IN BED, FAMILY REMAINS AT BEDSIDE. PT STATES SHE IS JUST TIRED AND DOESNT FEEL WELL. OVERALL, AT THIS TIME PATIENT HAS ONLY VOIDED 200, BLADDER SCANNING PATIENT BY LINE LEADER AT THIS MOMENT. FAMILY UPDATED MD IS STILL ROUNDING AND WILL BE IN SOON HE CAN TO DISCUSS PATIENT POC. FAMILY UNDERSTANDS. FRESH ICE WATER PROVIDED TO PATIENT, ENCOURAGED TO DRINK WATER FOR HYDRATION HER INTAKE IS LOW. CALL LIGHT WITHIN REACH.
--- NOTE | 2024-05-11 16:36 | NUR ---
OFFERED PATIENT BED BATH OR SHOWER. PATIENT DECLINED EITHER. SHE SAID SHE WOULD LET ME KNOW IF SHE CHANGES HER MIND. PATIENT LAYING DOWN IN BED, FAMILY AT BEDSIDE. CALL LIGHT IN REACH.
--- NOTE | 2024-05-11 17:28 | NUR ---
PATIENT CALLED TO USE THE BATHROOM. HAD A SMALL BM AND THEN BACK TO THE CHAIR FOR DINNER. PATIENT HAD INCREASED SHORTNESS OF BREATH AND FATIGUE. RN AWARE.
--- NOTE | 2024-05-11 18:00 | NUR ---
PT HAS BEEN UP/DOWN TODAY FROM BED TO THE CHAIR. SHE IS RESTING IN BED AT THIS TIME, FAMILY REMAINS IN THE ROOM. PT FEELING PUNNY THIS EVENING, SHE HAS MINIMAL URINE OUTPUT AT 200ML THUS FAR TODAY, WAS INFORMED, WILL CONTINUE TO JUST MONITOR AT THIS TIME. LASIX WAS CHANGED OVER TO PO LASIX THIS MORNING DUE TO KIDNEY FUNCTION, WILL CONTINUE TO MONITOR IMPROVEMENT. TELEMETRY REMAINS IN PLACE, CONTINUES TO RUN PACED IN THE 60'S. DENIES CHEST PAIN/PRESSURE. LIDOCAINE PATCH REMAINS IN PLACE TO (R) SHOULDER AREA. PUREWICK HAS BEEN IN PLACE ON/OFF TODAY, WITH HER RECEIVING LASIX TYRING TO GET ACCURATE I&Os. PT STILL REMAINS TO HAVE 3+PITTING EDEMA TO BLE, CONTINUE TO ELEVATE UP ON PILLOWS FOR COMFORT. PT/OT DID WORK WITH PATIENT, SHE WAS OFFERED A SHOWER BUT DECLINED TODAY. WILL CONTINUE TO MONITOR OXYGEN NEEDS - SHE DESATS VERY QUICKLY WHEN OFF HER OXYGEN, REQUIRES 2L AT ALL TIMES, SHE LIKES THE OXIMASK BUT SWITCHES TO NC WITH MEALS, FORGETS TO PUT ON O2 WHEN TRANSITIONING FROM OXI TO NC, RECOMMEDN BED/CHAIR ALARM ON AT ALL TIMES AND PATIET IS FORGETFUL AND WILL ATTEMPT TO GET UP ON HER OWN TO EDGE OF BED, IF SHE REMOVES O2 IT IS CONCERNING SHE WOULD GO HYPOXIC. ALL PT CARE NEEDS MET AT THIS TIME, WILL CONTINUE TO MONITOR
[2024-05-11 19:09] LABS: INFLUENZA B NAA NEGATIVE (NEGATIVE); RESPIRATORY SYNCYTIAL VIR NAA NEGATIVE (NEGATIVE)
--- NOTE | 2024-05-11 20:35 | NUR ---
Pt on 2L NC, cpox at bedside, took off NC, replaced by Oxymask and she has left it on. lungs with crackles at bases, moist non productive cough present. tel#[address], paced rhythm no c/o CP or n/v. abd soft, LBM today. bruising arms and L lower frontal leg, edema hips down to toes 2+, Declined SCD's, elevated with pillows and FOB. SL RA patent. took sips of water, pure wick in place, draining medium yellow cloudy colored urine. yoselin c/o urinary problems, helped with turning and repositioning in bed.
--- NOTE | 2024-05-11 22:58 | EKG ---
[facility] [address] [facility] [place] [address] Signed Ventricular-paced rhythm Abnormal ECG When compared with ECG of 08-JAN-2024 00:21, Electronic ventricular pacemaker has replaced Junctional rhythm Confirmed by Telma Galaviz MD () on 05/11/2024 10:58:38 PM Electronically Signed By: TELMA GALAVIZ MD 05/11/24 2258 PATIENT NAME: JERED KNOWLES Electrocardiogram DATE OF : 38 PHYSICIAN: TELMA GALAVIZ MD REPORT #: [id number] REPORT IS CONFIDENTIAL AND NOT TO BE RELEASED WITHOUT AUTHORIZATION
[2024-05-12] VITALS (10 sets, daily range): BP systolic 90–144; BP diastolic 40–55
--- NOTE | 2024-05-12 00:30 | NUR ---
PATIENT WANTING TO BE UP IN THE CHAIR. 1 PA. PATIENT'S PUREWICK AND CPOX IN PLACE. PATIENT IS IN 2L VIA OXYMASK O2. CHAIR ALARM ON. CALL LIGHT AND SIDE TABLE WITHIN REACH.
--- NOTE | 2024-05-12 02:17 | NUR ---
AWAKE, ALERT ANDORIENTED. IN CHAIR, EDEMATOUS LEGS, ELEVATED, O2 2LOXYMASK CPOX AT BEDSIDE. PLEASANT, NO C/O PAIN OR SOB. PURE WICK IN PLACE
--- NOTE | 2024-05-12 03:51 | NUR ---
Pt was sitting in chair, legs midway elevation in chair. Back to be O2 2L Oxymask. daily standing weight 60KG. Increaed rapid shallow breathing, c/o SOB. on 2L Oxymask, bedsice CPOX in place. WNL. Back to bed, increased edema to LE noted. crackles t/o. tele#[address] SVR w paced beats, denies CP. Recuperates easily after resting in bed, HOB elevated. sats 98%, resp 18 P73
--- NOTE | 2024-05-12 03:58 | NUR ---
Dr Goode notified of above. new orders for CXR now or in am as long as its ready for him to read when he gets here. wcontinues with labs as ordered and have RT do eval and treat . Pt calmer.
[2024-05-12 05:53] LABS: BASOPHILS 0.7 % (0-2); EOSINOPHILS 1.8 % (0-6); HEMATOCRIT 24.4 % (35.0-50.0); HEMOGLOBIN 7.9 g/dL (12.0-18.0); LYMPHOCYTES 22.7 % (24-44); MCH 27.9 (27-36); MCHC 32.3 g/dl (30-36); MCV 86.2 fl (81-99); MONOCYTES 12.8 % (0-12); PLATELET COUNT 172 K/uL (140-440); RBC 2.83 M/ul (4.3-5.7); RDW 16.7 (10.5-15.0)
[2024-05-12 06:07] LABS: ALBUMIN 2.8 g/dL (3.4-5.0); ALBUMIN/GLOBULIN RATIO 0.88 (1.1-2.4); ANION GAP 5.8 (7-21); BILIRUBIN, TOTAL 0.9 ng/dL (0.2-1.0); BUN/CREATININE RATIO 27.45 (6.0-28.6); CALCIUM 8.8 mg/dL (8.5-10.1); CREATININE, SERUM 1.53 mg/dL (0.55-1.02); POTASSIUM 3.8 mmol/L (3.5-5.1)
--- NOTE | 2024-05-12 07:25 | NUR ---
REPORT REC'D FROM CHUCK MACHUCA. PT RESTING IN BED WITH SIMPLE MASK IN USE. CPOX AT BEDSIDE, SPO2 93% IV FLUSHED
[2024-05-12] MEDS ORDERED: ASPIRIN 81 MG TABEC PO SCH (09:00)
[2024-05-12] MEDS ORDERED: FUROSEMIDE 40 MG/4 ML VIAL IV SCH (09:00)
--- NOTE | 2024-05-12 09:05 | NUR ---
PT OOB TO CHAIR FOR AM MEAL. PT ASSISTED WITH FWW, SBA. CHAIR ALARM IN PLACE, LEGS ELEVATED.
--- NOTE | 2024-05-12 10:37 | NUR ---
ALERT AND ORIENTED IN BED. SON, LARRY, IN ROOM. PLAN FOR PATIENT TO RETURN HOME WHEN MEDICALLY STABLE. NOT LIKELY TO DC TODAY. NO KNOWN CM NEEDS VOICED AT THIS TIME.
--- NOTE | 2024-05-12 11:45 | NUR ---
PT REMAINS SITTING IN CHAIR VISITING WITH SPIRITUAL CARE
--- NOTE | 2024-05-12 11:48 | NUR ---
VISITED DURING SPIRITUAL CARE ROUNDS. PT EXPRESSED FRUSTRATION WITH FREQUENCY OF CARE VISITS, EXPRESSED CONFUSION REGARDING BED OPERATION, EXPRESSED FELT OVERLOADED WITH DECISIONS BEING REQUESTED. COMPUTER PROGRAMMER PROVIDED SUPPORTIVE PRESENCE, RELAYED CONCERNS TO NURSING STAFF, PROVIDED HOSPITALITY, PRAYER. PT EXPRESSED GRATITUDE.
[2024-05-12] MEDS ORDERED: guaiFENesin 600 MG TABCR PO PRN (13:30)
--- NOTE | 2024-05-12 13:40 | NUR ---
PATIENT UP TO BATHROOM AND THEN TO BED, 1PA FWW. LUIS CARE DONE. NEW PUREWICK PLACED BY RN. VITALS AND I&O'S CHARTED. RN IN ROOM
--- NOTE | 2024-05-12 13:54 | NUR ---
PT ASSISTED TO BRP WITH FWW VERY SMALL BM NOTED. PT RETURNED TO BED, PUREWICK CHANGED. PT REQUESTING GUAIFENESSIN FOR MUCUS. PT MEDICATED, SIDERAILS UP X3, CALL KRISHNAMURTHY IN REACH, BED IN LOW POSITION. NC CHANGED TO SIMPLE MASK FOR NAP
--- NOTE | 2024-05-12 16:07 | NUR ---
PT HEARTRATE NOTED TO BE IN THE 30'S ON TWO OCCASIONS. BP 89/47, HR 64. PT C/O L SHOULDER PAIN, AND FEELING SHORT OF BREATH, SATS 94% ON 2L VIA MASK. RT NOTIFIED FOR BREATHING TREATMENT. DISCUSSED WITH MD, ECG OBTAINED. CALL PLACED TO DR. MONAHAN OFFICE IN [place] FOR PACEMAKER INFORMATION. PT HAS [facility] SINGLE CHAMBER VENTRICULAR PACEMAKER, SET RATE OF 60 WITH UNDERLYING RHYTHM OF AFIB PER LETICIA. DISCUSSED WITH DR. MENESES REQUESTED FOR PACEMAKER TO BE INTERROGATED. BILLET HEATER OPERATOR INTERROGATED WITH CRISTA ON DEMAND OBTAINED FROM THE ED. REPORT REC'D WITHOUT ABNORMALITIES. PACEMAKER REP CONTACTED UNIT AND REQUESTED FOR PACEMAKER TO BE RE-INTERROGATED. PT REQUESTED FOR SON TO COME TO HOSPITAL. THIS RN CONTACTED SON, ASIA, AND HIS , LAYLA. BOTH ARE NOW AT BEDSIDE. CALL PLACED TO PATIENT DAUGHTER, REGGIE NOTIFIED OF INFORMATION. REGGIE #[phone]. CONTACT INFORMATION PROVIDED FOR UPDATE IN DEMOGRAPHICS.
--- NOTE | 2024-05-12 18:38 | NUR ---
PT PLEASANT AND COOPERATIVE WITH CARE T/O SHIFT. PT OOB TO CHAIR FOR SEVERAL HOURS TODAY. NO FURTHER BRADYCARDIC EVENTS NOTED, SECOND INTERROGATION REPORT UNCHANGED FROM FIRST. PT CONTINUES TO HAVE 4+ EDEMA TO BLE. LS CONTINUE TO BE COARS T/O WITH PORODUCTIVE COUGH. O2 AT 3LNC/MASK. PT UP TO SIDE OF BED FOR EVENING MEAL, THEN RETURNED TO BED. SIDERAILS UP X3, CALL KRISHNAMURTHY IN REACH, BED IN LOW POSITION AND LOCKED.
--- NOTE | 2024-05-12 19:20 | NUR ---
REPORT RECEIVED FROM ALEX MACHUCA. pt RESTING IN THE BED. NEW PUREWICK PLACED. BOARD UPDATED. pt DENIES ANY OTHER NEEDS AT THIS TIME. CALL LIGHT WITHIN REACH.
[2024-05-12] MEDS ORDERED: MELATONIN 3 MG TAB PO SCH (21:00)
--- NOTE | 2024-05-12 21:30 | NUR ---
ASSESSMENT AND VITAL SIGNS DONE. SCHEDULED MEDS ADMINISTERED. pt REPOSITIONED ON RIGHT SIDE. pt DENIES ANY OTHER NEEDS AT THIS TIME. 3+ PITTING EDEMA IN BILAT LOWER EXTREMITIES. CALL LIGHT WITHIN REACH.
--- NOTE | 2024-05-12 23:17 | NUR ---
VERBAL ORDER FROM MD TO REMOVE TELE. TELE REMOVED, ORDER UPDATED.
--- NOTE | 2024-05-12 23:30 | NUR ---
pt RESPOSITONED. pt DENIES ANY OTHER NEEDS AT THIS TIME. CALL LIGHT WITHIN REACH.
--- NOTE | 2024-05-13 01:33 | NUR ---
pt RESTING IN BED WITH EYES CLOSED. RR EVEN AND UNLABORED. CALL LIGHT WITHIN REACH.
--- NOTE | 2024-05-13 03:17 | NUR ---
pt RESTING IN THE BED WITH EYES CLOSED RR EVEN AND UNLABORED. CALL LIGHT WITHIN REACH.
[2024-05-13 05:49] LABS: BASOPHILS 1.2 % (0-2); EOSINOPHILS 1.7 % (0-6); HEMATOCRIT 26.3 % (35.0-50.0); HEMOGLOBIN 8.5 g/dL (12.0-18.0); LYMPHOCYTES 25.7 % (24-44); MCH 27.7 (27-36); MCHC 32.4 g/dl (30-36); MCV 85.6 fl (81-99); MONOCYTES 13.4 % (0-12); PLATELET COUNT 155 K/uL (140-440); RBC 3.07 M/ul (4.3-5.7); RDW 16.7 (10.5-15.0)
[2024-05-13 05:51] VITALS: BP 129/48
[2024-05-13 05:54] VITALS: BP 129/48
[2024-05-13 06:08] LABS: ALBUMIN 2.8 g/dL (3.4-5.0); ALBUMIN/GLOBULIN RATIO 0.88 (1.1-2.4); ANION GAP 9.6 (7-21); BILIRUBIN, TOTAL 0.7 ng/dL (0.2-1.0); BUN/CREATININE RATIO 30.87 (6.0-28.6); CALCIUM 8.7 mg/dL (8.5-10.1); CREATININE, SERUM 1.49 mg/dL (0.55-1.02); POTASSIUM 3.6 mmol/L (3.5-5.1)
--- NOTE | 2024-05-13 07:22 | NUR ---
REPORT RECEIVED FROM LEATHER TOGGLER RN JAYLA. PATIENT IS LYING IN BED EYES CLOSED AND RESPIRATIONS ARE EVEN AND UNLABORED. CPOX AT BEDSIDE. CALL LIGHT AND PERSONAL BELONGINGS ARE WITHIN REACH.
--- NOTE | 2024-05-13 08:10 | NUR ---
0800 AND 0900 MEDICATIONS ADMINISTERED PER THE EMAR. FULL ASSESSMENT COMPLETE AND DOCUMENTED IN THE CHART. PATIENT IS ALERT AND ORIENTED TIMES FOUR. PUREWICK IN PLACE. SCD'S IN PLACE. CARDIAC WITH NORMAL S1 AND S2 ON AUSCULTATION. RADIAL AND PEDAL PULSES ARE STRONG BILATERALLY. CAPILLARY REFILL IS LESS THAN 3 SECONDS IN THE UPPER AND LOWER EXTREMITIES. SENSATION INTACT. PATIENT REPORT NUMBNESS AND TINGLING IN THE FEET BILATERALLY. PATIENT IS SENSITIVE TO THE TOUCH IN BLE. 2+ PITTING EDEMA NOTED IN THE BILATERAL FEET. IV FLUSHED WITH 5 ML NORMAL SALINE AND IS SALINE LOCKED. IV DRESSING IS CLEAN, DRY, AND INTACT. SKIN WITH SCATTERED BRUISING WUTH A SCAB ON THE LEFT NUÑEZ. PATIENT IS ON A 2 GRAM SODIUM DIET. BOWEL TONES ARE ACTIVE IN ALL FOUR QUADRANTS. LAST BM WAS 05/12/24. PATIENT WITH NC IN PLACE. LUNG SOUNDS ARE CLEAR BILATERALLY IN ALL LUNG FIGUEROA. PATIENT STATED HAVING SOB. CPOX AT BEDSIDE. PATIENT WITH NO COMPLAINTS OF PAIN. PATIENT STATED NO FURTHER NEEDS AT THIS TIME. CALL LIGHT AND PERSONAL BELONGINGS ARE WITHIN REACH.
--- NOTE | 2024-05-13 09:07 | NUR ---
PATIENT IS IN THE CHAIR WITH BLE ELEVATED. NC IN PLACE. CPOX AT BEDSIDE. CALL LIGHT AND PERSONAL BELONGINGS ARE WITHIN REACH.
--- NOTE | 2024-05-13 09:28 | NUR ---
SPOKE WITH PATIENT REGARDING POTENTIAL DC TODAY. STATES SON WILL BE IN [place] FOR AN APPOINTMENT TODAY. INFORMED HER IF HE ISN'T ABLE TO PICK HER UP UNTIL THIS EVENING THAT IS OK. STATES SHE HAS NO NEEDS AT HOME AT THIS TIME.
--- NOTE | 2024-05-13 09:52 | NUR ---
Today I find Lanette in her bedside chair visiting with hospitalist. At the end of their conversation regarding discharge and home medications I discuss the IMM letter and discharge. Lanette does want to return home to her current living environment, and denies need for information regarding any other choices at this time. She states she lives with her son and uufzmrrr-wd-[id number], and that they are very busy and "gone a lot." When I discussed other options to consider Lanette declined the information, adding "I want to keep living with my son and [id number]." Questions are answered regarding discharge IMM letter, appeal process explained, which Lanette does not want to pursue per her statement to me. She does sign the letter, and a signed copy of the letter is provided to Lanette. She denies further needs at this time.
--- NOTE | 2024-05-13 09:56 | NUR ---
When visiting with Lanette regarding her IMM letter she does share that she feels her care has been "very good" while in the hospital, and she feels like staff have done a "good job" explaining things to her. She also shares that she relies on her kwujkfuk-lc-rgs to take her to appointments, and make appointments for her, adding, my Son and Alivqqy-az-jre are very busy, sometimes it is very hard. I asked her if she felt safe in her current living plan, or if she would like information regarding assisted living or care facilities so that she would have more assistance. Even though she is aware that she is home alone a lot, per her statements, she declines additional information for other living options at this time.
[2024-05-13 10:14] VITALS: BP 140/47
--- NOTE | 2024-05-13 10:17 | NUR ---
PATIENT IS SITTING IN THE CHAIR WITH BILATERAL LOWER EXTREMITIES ELEVATED. PATIENT IS ON THE PHONE. NC IN PLACE WITH THE CPOX AT BEDSIDE. PATIENT STATED NO FURTHER NEEDS AT THIS TIME. CALL LIGHT AND PERSONAL BELONGINGS ARE WITHIN REACH.
[2024-05-13 10:19] VITALS: BP 140/47
[2024-05-13] MEDS ORDERED: SOAANZ40 MG PO (11:08)
[2024-05-13] MEDS ORDERED: SYMBICORT 16010.2 GM INH (11:09)
[2024-05-13] MEDS ORDERED: PREDNISONE20 MG PO (11:10)
--- NOTE | 2024-05-13 11:39 | NUR ---
PATIENT IS SITTING IN THE CHAIR WITH BILATERAL LOWER EXTREMITIES ELEVATED. NC IN PLACE. PATIENT IS ON HER PHONE. CALL LIGHT AND PERSONAL BELONGINGS ARE WITHIN REACH.
--- NOTE | 2024-05-13 12:01 | NUR ---
VISITED DURING SPIRITUAL CARE ROUNDS. PT DENIED IMMEDIATE NEEDS. SHORT VISIT PT ON PHONE. PROVIDED PRAYER.
--- NOTE | 2024-05-13 12:36 | NUR ---
PATIENT IS SITTING UPRIGHT IN THE CHAIR WITH NC IN PLACE. CPOX AT BEDSIDE. PATIENT IS EATING LUNCH. MILK OPENED PER PATIENT REQUEST. PATIENT STATED NO FURTHER NEEDS AT THIS TIME. CALL LIGHT AND PERSONAL BELONGINGS ARE WITHIN REACH.
--- NOTE | 2024-05-13 13:12 | NUR ---
PATIENT IS SITTING UPRIGHT IN THE CHAIR. CPOX AT BEDSIDE. NC IN PLACE. PATIENT WITH A VISITOR IN THE ROOM AT THIS TIME. CALL LIGHT AND PERSONAL BELONGINGS ARE WITHIN REACH.
[2024-05-13 13:56] VITALS: BP 144/47
--- NOTE | 2024-05-13 14:28 | NUR ---
Patient is sitting up in their chair with family in room. The footrest of the chair was put up for comfort.
[2024-05-13 15:01] VITALS: BP 144/47
== END 2024-05-13 15:30 | disposition home or self-care (01) | DRG 291 ==
LOC: ED 20:20 → MS 22:38
PROVIDERS: Emergency Medicine; ADMIT Family Medicine; ATTEND Family Medicine
DX: I50.33 Acute on chronic diastolic (congestive) heart failure (principal); J96.90 Respiratory failure, unspecified, unspecified whether with hypoxia or hypercapnia; I24.89 Other forms of acute ischemic heart disease; N17.9 Acute kidney failure, unspecified; I25.2 Old myocardial infarction; Z95.0 Presence of cardiac pacemaker; Z95.1 Presence of aortocoronary bypass graft; Z98.890 Other specified postprocedural states; Z88.0 Allergy status to penicillin; Z79.899 Other long term (current) drug therapy; M25.511 Pain in right shoulder; Z66 Do not resuscitate; Z99.81 Dependence on supplemental oxygen
CPT/HCPCS: 36415; 51798; 71045; 73030; 80048; 80053; 83735; 83880; 84100; 84484; 85025; 87502; 93005; 93010; 94640; 94667; 94668; 94762; 97161; 97166; 97535; A9270; J1650; J1940; U0002

== ENCOUNTER 2024-06-02 07:17 | Emergency (ER) | payer MEDICARE, MEDICAID ==
[~2024-06-02] VITALS: Ht 160 cm; Wt 56.7 kg
[~2024-06-02 07:17] MED LIST changes: +ADULT LOW DOSE81 MG PO; +ELIQUIS2.5 MG PO; +PREDNISONE20 MG PO; +SOAANZ40 MG PO; +SYMBICORT 16010.2 GM INH
--- OUTSIDE RECORDS SUMMARY | 2024-06-02 07:23 | XMS ---
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 Camilla VISIT COUNT (12 MO.) 3 GRAHAM Rojas TOTAL 3 NOTE: Visits indicate total known visits. ED/UCC VISIT TRACKING (12 MO.) 06/02/2024 07:18 [facility] [place] TYPE: Emergency COMPLAINT: - SHORTNESS OF BREATH 05/09/2024 20:21 [facility] TYPE: Emergency COMPLAINT: - FLUID RETENTION 01/07/2024 00:53 [facility] TYPE: Emergency COMPLAINT: - SOB INPATIENT VISIT TRACKING (12 MO.) 05/09/2024 22:38 [facility] [place] TYPE: Medical Surgical COMPLAINT: - CHF, PULM EDEMA DIAGNOSES: - Acute kidney failure, unspecified - Acute on chronic diastolic (congestive) heart failure - Allergy status to penicillin - Dependence on supplemental oxygen - Do not resuscitate - Heart failure, unspecified - Old myocardial infarction - Other forms of acute ischemic heart disease - Other oil heaterman (current) drug therapy - Other specified postprocedural states - Pain in right shoulder - Presence of aortocoronary bypass graft - Presence of cardiac pacemaker - Respiratory failure, unspecified, unspecified whether with hypoxia or hypercapnia [facility] DIAGNOSES: - Acute on chronic diastolic (congestive) heart failure - Bradycardia, unspecified - Hypothyroidism, unspecified - Sick sinus syndrome - Pacemaker 01[facility]07[facility]2024 08:[facility] COMPLAINT: - ACUTE CHF EXACERBATION,HYPOXEMIA,RENAL INSUFFICIEN DIAGNOSES: - Acute and chronic respiratory failure with hypoxia - Acute kidney failure, unspecified - Acute on chronic diastolic (congestive) heart failure - Allergy status to penicillin - Atherosclerotic heart disease of [place] coronary artery without angina pectoris - Cardiogenic shock - Combined rheumatic disorders of mitral, aortic and tricuspid valves - Do not resuscitate - Encounter for palliative care - Hypertensive heart disease with heart failure - Old myocardial infarction - Other assisted (current) drug therapy - Other specified postprocedural states - Presence of aortocoronary bypass graft - Pulmonary hypertension, unspecified - Unspecified atrial fibrillation [email or web address]
[2024-06-02 07:53] LABS: BASOPHILS 1.1 % (0-2); EOSINOPHILS 1.3 % (0-6); HEMATOCRIT 26.3 % (35.0-50.0); HEMOGLOBIN 8.2 g/dL (12.0-18.0); LYMPHOCYTES 28.3 % (24-44); MCH 25.1 (27-36); MCHC 31.2 g/dl (30-36); MCV 80.6 fl (81-99); MONOCYTES 15.4 % (0-12); NEUTROPHILS 53.9 % (39-80); PLATELET COUNT 182 K/uL (140-440); RBC 3.26 M/ul (4.3-5.7); RDW 17.2 (10.5-15.0)
[2024-06-02] MEDS ORDERED: BREYNA 160-4.10.3 GM INH (08:04)
[2024-06-02] MEDS ORDERED: TORSEMIDE20 MG PO (08:05)
[2024-06-02] MEDS ORDERED: ELIQUIS2.5 MG PO (08:05)
[2024-06-02 08:12] LABS: CORONAVIRUS COVID-19 AG NEGATIVE (NEGATIVE); INFLUENZA A AG NEGATIVE (NEGATIVE); INFLUENZA B AG NEGATIVE (NEGATIVE)
[2024-06-02 08:17] LABS: ALBUMIN 3.5 g/dL (3.4-5.0); ALBUMIN/GLOBULIN RATIO 1.03 (1.1-2.4); ANION GAP 10.2 (7-21); BILIRUBIN, TOTAL 0.7 mg/dL (0.2-1.0); BUN/CREATININE RATIO 19.75 (6.0-28.6); CALCIUM 9.3 mg/dL (8.5-10.1); CREATININE, SERUM 1.62 mg/dL (0.55-1.02); POTASSIUM 3.2 mmol/L (3.5-5.1); PROTEIN, TOTAL 6.9 g/dL (6.4-8.2)
[2024-06-02] MEDS ORDERED: ALBUTEROL/IPRATROPIUM 3 ML NEB INH ONE (08:45)
[2024-06-02] MEDS ORDERED: IPRAT-ALBUT 0.5-3 ML INH (09:39)
[2024-06-02] MEDS ORDERED: FUROSEMIDE 40 MG/4 ML VIAL IV ONE (09:45)
[2024-06-02] MEDS ORDERED: POTASSIUM CHLORIDE 10 MEQ TABCR PO ONE (09:45)
[2024-06-02 12:24] VITALS: BP 105/57
--- NOTE | 2024-06-03 19:44 | EKG ---
[facility] [address] [facility] [place] [address] Signed Sinus rhythm with 1st degree AV block with frequent ventricular-paced complexes and premature supraventricular complexes Right bundle branch block T wave abnormality, consider inferolateral ischemia Abnormal ECG When compared with ECG of 12-MAY-2024 15:10, Electronic ventricular pacemaker has replaced Sinus rhythm Confirmed by Jamir Kelly MD ([id number]) on 06/03/2024 7:44:25 PM Electronically Signed By: JAMIR KELLY MD 06/03/241943 PATIENT NAME: JERED KNOWLES Electrocardiogram DATE OF : 38 PHYSICIAN: JAMIR KELLY MD REPORT #: [id number] REPORT IS CONFIDENTIAL AND NOT TO BE RELEASED WITHOUT AUTHORIZATION
== END 2024-06-02 12:25 | disposition home or self-care (01) ==
LOC: ED 07:17
PROVIDERS: Emergency Medicine
DX: I50.9 Heart failure, unspecified (principal); I25.2 Old myocardial infarction; Z95.0 Presence of cardiac pacemaker; Z88.0 Allergy status to penicillin; Z79.51 Long term (current) use of inhaled steroids; Z79.82 Long term (current) use of aspirin; Z79.899 Other long term (current) drug therapy
CPT/HCPCS: 36415; 51702; 71045; 80053; 83880; 84484; 85025; 87502; 93005; 93010; 94640; 99285-25; A9270; J1940; U0002

== ENCOUNTER 2024-06-15 19:15 | Emergency (ER) | payer MEDICARE, MEDICAID ==
[~2024-06-15] VITALS: Ht 160 cm; Wt 65.4 kg
[~2024-06-15 19:15] MED LIST changes: +BREYNA 160-4.10.3 GM INH; +IPRAT-ALBUT 0.5-3 ML INH; +TORSEMIDE20 MG PO
--- OUTSIDE RECORDS SUMMARY | 2024-06-15 19:22 | XMS ---
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 Camilla VISIT COUNT (12 MO.) 4 GRAHAM Rojas TOTAL 4 NOTE: Visits indicate total known visits. 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) use of inhaled steroids - Old myocardial infarction - Other long-term (current) drug therapy - Presence of cardiac pacemaker - Shortness of breath 05/09/2024 20:21 [facility] TYPE: Emergency COMPLAINT: - FLUID RETENTION 01/07/2024 00:53 [facility] TYPE: Emergency COMPLAINT: - SOB INPATIENT VISIT TRACKING (12 MO.) 05/09/2024 22:38 [facility] TYPE: Medical Surgical COMPLAINT: - CHF, PULM EDEMA DIAGNOSES: - Acute kidney failure, unspecified - Acute on chronic diastolic (congestive) heart failure - Allergy status to penicillin - Dependence on supplemental oxygen - Do not resuscitate - Heart failure, unspecified - Old myocardial infarction - Other forms of acute ischemic heart disease - Other long-term (current) drug therapy - Other specified postprocedural states - Pain in right shoulder - Presence of aortocoronary bypass graft - Presence of cardiac pacemaker - Respiratory failure, unspecified, unspecified whether with hypoxia or hypercapnia 01/09/2024 18:36 [facility] Alexsander GELLER (Alexsander Beltre) TYPE: Medical Surgical DIAGNOSES: - Acute on chronic diastolic (congestive) heart failure - Bradycardia, unspecified - Hypothyroidism, unspecified - Sick sinus syndrome - Pacemaker 01/07/2024 08:21 [facility] TYPE: Medical Surgical COMPLAINT: - ACUTE CHF EXACERBATION,HYPOXEMIA,RENAL INSUFFICIEN DIAGNOSES: - Acute and chronic respiratory failure with hypoxia - Acute kidney failure, unspecified - Acute on chronic diastolic (congestive) heart failure - Allergy status to penicillin - Atherosclerotic heart disease of [place] coronary artery without angina pectoris - Cardiogenic shock - Combined rheumatic disorders of mitral, aortic and tricuspid valves - Do not resuscitate - Encounter for palliative care - Hypertensive heart disease with heart failure - Old myocardial infarction - Other technician terminal and repeater (current) drug therapy - Other specified postprocedural states - Presence of aortocoronary bypass graft - Pulmonary hypertension, unspecified - Unspecified atrial fibrillation [email or web address]
[2024-06-15] MEDS ORDERED: FUROSEMIDE40 MG PO (19:27)
[2024-06-15 20:12] LABS: BASOPHILS 0.8 % (0-2); EOSINOPHILS 0.4 % (0-6); HEMATOCRIT 24.7 % (35.0-50.0); HEMOGLOBIN 7.7 g/dL (12.0-18.0); LYMPHOCYTES 15.3 % (24-44); MCH 23.7 (27-36); MCHC 31.1 g/dl (30-36); MCV 76.2 fl (81-99); MONOCYTES 18.5 % (0-12); PLATELET COUNT 212 K/uL (140-440); RBC 3.24 M/ul (4.3-5.7); RDW 18.6 (10.5-15.0)
[2024-06-15 20:34] LABS: ALBUMIN 3.2 g/dL (3.4-5.0); ANION GAP 11.6 (7-21); BILIRUBIN, TOTAL 1.4 mg/dL (0.2-1.0); BUN/CREATININE RATIO 22.13 (6.0-28.6); CALCIUM 9.2 mg/dL (8.5-10.1); CREATININE, SERUM 2.44 mg/dL (0.55-1.02); MAGNESIUM 2.5 mg/dL (1.8-2.4); POTASSIUM 3.6 mmol/L (3.5-5.1); PROTEIN, TOTAL 6.4 g/dL (6.4-8.2)
[2024-06-15 21:02] LABS: BILIRUBIN, URINE NEGATIVE (negative); BLOOD/HGB, URINE TRACE-I (Negative); KETONE, URINE NEGATIVE (Negative); LEUK ESTERASE, URINE MODERATE (negative); NITRITE, URINE NEGATIVE (negative)
[2024-06-15 21:07] LABS: BACTERIA, URINE 4+ /hpf (negative); CASTS, URINE NONE SEEN \\lpf; CRYSTALS, URINE NONE SEEN (0-1+); EPITHELIAL CELLS, URINE SQUAMOUS 3+ /lpf (0-1+); RED BLOOD CELLS, URINE 0-1 /hpf (0-5); WHITE BLOOD CELLS, URINE >50 /HPF (0-5)
[2024-06-15 21:08] LABS: COLLECTION TYPE, URINE CLEAN CATCH; REFLEX CULTURE, URINE No (No)
[2024-06-15] MEDS ORDERED: CEPHALEXIN500 M1 PO (21:24)
[2024-06-15] MEDS ORDERED: CEPHALEXIN MONOHYDRATE 500 MG CAP PO ONE (21:30)
[2024-06-15 21:52] VITALS: BP 126/47
== END 2024-06-15 21:45 | disposition home or self-care (01) ==
LOC: ED 19:15
PROVIDERS: Internal Medicine
DX: N39.0 Urinary tract infection, site not specified (principal); S01.81XA Laceration without foreign body of other part of head, initial encounter; S61.412A Laceration without foreign body of left hand, initial encounter; W06.XXXA Fall from bed, initial encounter; I50.9 Heart failure, unspecified; I25.2 Old myocardial infarction; Z88.0 Allergy status to penicillin; Z79.899 Other long term (current) drug therapy; Z79.82 Long term (current) use of aspirin
CPT/HCPCS: 36415; 70450; 80053; 81001; 83735; 83880; 85025; 87077; 87088; 87186; 99284-25; A9270

== ENCOUNTER 2024-06-23 14:33 | Emergency (ER) | payer MEDICARE, MEDICAID ==
[~2024-06-23] VITALS: Ht 160 cm; Wt 65.4 kg
[~2024-06-23 14:33] MED LIST changes: +CEPHALEXIN500 M1 PO
[2024-06-23] MEDS ORDERED: IBLOOD GLUCOSE TEST STRIP 1 EA TEST VI ONE (15:00)
[2024-06-23 15:46] LABS: BILIRUBIN, URINE NEGATIVE (negative); BLOOD/HGB, URINE NEGATIVE (Negative); KETONE, URINE NEGATIVE (Negative); LEUK ESTERASE, URINE NEGATIVE (negative); NITRITE, URINE NEGATIVE (negative)
[2024-06-23 15:51] LABS: HEMOGLOBIN 7.9 g/dL (12.0-18.0); MCH 22.4 (27-36); MCHC 30.2 g/dl (30-36); MCV 73.9 fl (81-99); PLATELET COUNT 238 K/uL (140-440); RBC 3.51 M/ul (4.3-5.7); RDW 19.5 (10.5-15.0)
[2024-06-23 16:02] LABS: ALBUMIN 3.3 g/dL (3.4-5.0); ALBUMIN/GLOBULIN RATIO 1.06 (1.1-2.4); ANION GAP 10.9 (7-21); BILIRUBIN, TOTAL 1.5 mg/dL (0.2-1.0); BUN/CREATININE RATIO 29.43 (6.0-28.6); CALCIUM 8.8 mg/dL (8.5-10.1); CREATININE, SERUM 2.31 mg/dL (0.55-1.02); POTASSIUM 3.9 mmol/L (3.5-5.1); PROTEIN, TOTAL 6.4 g/dL (6.4-8.2)
[2024-06-23 16:16] LABS: EOSINOPHILS, MANUAL DIFF 4; LYMPHOCYTES, MANUAL DIFF 21; MONOCYTES, MANUAL DIFF 9; NEUTROPHILS, MANUAL DIFF 66
[2024-06-23 18:36] VITALS: BP 111/57
--- NOTE | 2024-06-24 23:13 | EKG ---
[facility] [address] [facility] [place] [address] Signed Sinus rhythm Rightward axis Nonspecific intraventricular block T wave abnormality, consider inferior ischemia Abnormal ECG When compared with ECG of 02-JUN-2024 07:51, supraventricular complexes are no longer present Confirmed by Telma Galaviz MD () on 06/24/2024 11:13:28 PM Electronically Signed By: TELMA GALAVIZ MD 06/24/24 2313 PATIENT NAME: JERED KNOWLES Electrocardiogram DATE OF : 38 PHYSICIAN: TELMA GALAVIZ MD REPORT #: [id number] REPORT IS CONFIDENTIAL AND NOT TO BE RELEASED WITHOUT AUTHORIZATION
== END 2024-06-23 18:38 | disposition home or self-care (01) ==
LOC: ED 14:33
PROVIDERS: Emergency Medicine
DX: I50.9 Heart failure, unspecified (principal); D64.9 Anemia, unspecified; I25.2 Old myocardial infarction; J44.9 Chronic obstructive pulmonary disease, unspecified; Z88.0 Allergy status to penicillin; Z79.2 Long term (current) use of antibiotics
CPT/HCPCS: 36415; 71045; 80053; 80307; 81003; 83880; 84484; 85025; 93005; 93010; 99285-25; G0480